=== PATIENT | male | born 1960 | race Caucasian/White ===

== ENCOUNTER 2020-01-09 10:03 | Outpatient (CLI) | payer MEDICARE, OTHER, SELFPAY ==
--- NOTE | 2020-01-09 10:16 | CT_ITS ---
WS: [id number] CT LUNG CANCER SCREENING DLP: 90.53 mGy.cm DIvol: 2.28 mGy CLINICAL INFORMATION SCREENING VISIT: Baseline COMPARISON: None available. FINDINGS Diagnostic quality: Satisfactory Comments: None. Lung Nodules: Benign granuloma LEFT lower lobe. Ovoid, 4 mm perifissural nodule on the LEFT, image 25 2 of series 3. Very superficial endobronchial lesions in the distal RIGHT trachea and the proximal RI GHT mainstem bronchus. The largest measures 4 mm. Largest endobronchial lesion on image 170 of series 3. The smaller lesion image 148 of series 3. Lungs: Mild biapical pleural thickening and fibrosis. Mild emphysema. Heart: Normal size. Other findings: Mild atherosclerosis of aorta. Pulmonary artery size is normal. There is mild diffuse thickening of the esophagus and a moderate size hiatal hernia. There is a small amount of fluid in t he distal esophagus. Bilateral nephrolithiasis upper poles. Prior cholecystectomy. CT/CT lung screening [id number] IMPRESSION: LUNG-RADS: 4A-Probably Suspicious FOLLOW UP: 3 Month LDCT 1. Follow up low-dose CT and 3 months recommended for the endobronchial lesion s. 2. Mild diffuse esophageal wall thickening and fluid in the distal esophagus. Consider reflux esophagitis and esophagitis as etiologies.
== END 2020-01-09 10:04 | disposition home or self-care (01) ==
LOC: RAD 10:08
PROVIDERS: Family Provider Internal Medicine; Visit Provider Internal Medicine
DX: Z12.2 Encounter for screening for malignant neoplasm of respiratory organs (principal); F17.210 Nicotine dependence, cigarettes, uncomplicated; R91.8 Other nonspecific abnormal finding of lung field; J43.9 Emphysema, unspecified; I70.0 Atherosclerosis of aorta; N20.0 Calculus of kidney
CPT/HCPCS: G0297

== ENCOUNTER 2022-12-22 07:42 | Outpatient (CLI) | payer MEDICARE, SELFPAY ==
--- NOTE | 2022-12-22 | MR_ITS ---
WS: [id number] MRI LUMBAR SPINE WITH AND WITHOUT CONTRAST HISTORY: FAILED BACK SYNDROME, progressive back pain. COMPARISON: None available. TECHNIQUE: Sagittal and axial multisequence imaging is submitted. Postcontrast imaging 19 mL MultiHan ce. Increase in lumbar lordosis with curvature and scoliosis. Posterior fusion hardware in the thoracolum bar region. Additional posterior fusion hardware at L3-4. Hardware appears confined to the paraspinal soft tissues and does not appear to extend into the pedicles. L2 retrolisthesis by 2 mm. L3 retrolisthesis by 2 mm. Variable density throughout the osseous structu res. There is very slight retropulsion of posterior superior endplate of L2. There is very mild conta ct on the ventral thecal sac. Disc spaces are all narrowed and desiccated. Conus terminates normally at L1-2 disc level. L1-L2: Osteophytic ridging with mild L2 retropulsion upon the ventral thecal sac. Posterior laminecto my defect. Mild foraminal narrowing. L2-L3: Diffuse osteophytic ridging with ligamentum flavum and marked facet arthritis. Posterior sarah ectomy defect with fusion. Severe central, bilateral subarticular recess and RIGHT foraminal stenosis . Mild LEFT foraminal stenosis. L3-L4: Severe central and bilateral subarticular recess and foraminal stenosis. Large posterior sarah ectomy defect with bone fusion. Marked LEFT ligamentum flavum hypertrophy. There is significant encro achment upon the L3 and L4 nerve roots. L4-L5: Diffuse osteophytic ridging and disc bulging with a central protrusion. Marked ligamentum flav um and facet arthritis. Laminectomy defect with fusion. Severe central, bilateral subarticular recess and moderate foraminal stenosis. There is significant encroachment with deformity upon the traversin g L5 nerve roots. L5-S1: Mild annular disc bulging with severe ligamentum flavum and facet arthritis. Moderate central, bilateral subarticular recess and foraminal stenosis, RIGHT greater than LEFT. No discitis or osteomyelitis. LEFT renal cyst. Heterogeneous marrow signal throughout the spine and pelvis. Probably due to osteopenia. MR/MR lumbar spine wo/w con [id number] IMPRESSION: 1. Advanced degenerative changes throughout the lumbar spine with multifocal a reas of stenosis. 2. Scoliosis and increased lumbar lordosis. 3. Severe central, bilateral subarticular recess and RIGHT foraminal stenosis at L2-3 with mild LEFT foraminal stenosis. 4. Severe central, bilateral subarticular recess and foraminal stenosis at L3- 4. Significant encroachment upon the L3 and L4 nerve roots. 5. Severe central, bilateral subarticular recess and moderate foraminal stenos is at L4-5 with significant encroachment and deformity upon the traversing L5 n erve roots. 6. Moderate central, bilateral subarticular recess and foraminal stenosis at L 5-S1, RIGHT greater than LEFT. 7. Posterior 3 mm retropulsion of the posterior superior endplate of L2 with c ontact on the ventral thecal sac.
--- NOTE | 2022-12-22 | MR_ITS ---
WS: [id number] MRI THORACIC SPINE with and without contrast. HISTORY: FAILED BACK SYNDROME COMPARISON: None available. TECHNIQUE: Multiplanar sequences are performed in sagittal and axial planes. Postcontrast imaging Mul tiHance 19 mL. Normal posterior thoracic alignment. Disc spaces are mildly narrowed and desiccated. Mild heterogeneo us marrow signal with no areas of abnormal enhancement within the bones. Signal within the cord is no rmal. No fractures or marrow edema. Posterior fusion hardware at T12-L1. T1-2: Bilateral facet arthritis. T2-3: Moderate bilateral facet joint arthritis encroaching upon the neural foramina. Small RIGHT par acentral disc protrusion. Moderate bilateral foraminal stenosis. T3-4: Moderate facet joint arthritis with moderate foraminal stenosis. T4-5: Mild facet arthritis and foraminal narrowing. T5-6: Mild facet arthritis and foraminal narrowing. T6-7: Bilateral paracentral disc protrusions. No contact on the thoracic cord. Mild facet arthritis and foraminal narrowing. T7-8: Small central disc protrusion with moderate facet arthritis. Moderate foraminal stenosis. T8-9: Moderate central disc protrusion with moderate facet joint arthritis. Moderate bilateral rosalina inal stenosis. T9-10: Bilateral paracentral disc protrusions with mild narrowing of the central canal. Moderate to severe bilateral facet joint arthritis. Moderate to severe foraminal stenosis. T10-11: Moderate to severe bilateral facet joint arthritis with moderate to severe bilateral foramin al stenosis. T11-12: Mild bilateral foraminal narrowing and facet arthritis. T12-L1: No stenosis. No discitis or osteomyelitis. MR/MR thoracic spine wo/w [id number] IMPRESSION: 1. Multilevel facet joint arthritis. Most significant at T2-3, T3-4 and from T 7-8 through T10-11. 2. Small RIGHT paracentral disc protrusion at T2-3 and T7-8. 3. Bilateral paracentral disc protrusions at T6-7 and T9-10. No cord contact. 4. Small central disc protrusion at T8-9. 5. No high-grade central stenosis.
[2022-12-22] MEDS: gadobenate dimeglumine 20 mL vial IV (09:08)
== END 2022-12-22 07:43 | disposition home or self-care (01) ==
LOC: RAD 07:46
PROVIDERS: PCP General Practice; Visit Provider General Practice
DX: M96.1 Postlaminectomy syndrome, not elsewhere classified (principal); M54.14 Radiculopathy, thoracic region; M54.17 Radiculopathy, lumbosacral region; M47.894 Other spondylosis, thoracic region; M51.24 Other intervertebral disc displacement, thoracic region; M40.56 Lordosis, unspecified, lumbar region; M41.9 Scoliosis, unspecified; M51.36 Other intervertebral disc degeneration, lumbar region
CPT/HCPCS: 72157; 72158; A9577

== ENCOUNTER → 2023-03-22 09:13 | Outpatient (BNVA) | payer MEDICARE, SELFPAY | PROVIDERS: PCP General Practice; Referring Provider Nurse Practitioner Family; Visit Provider Orthopaedic Surgery | DX: M54.9 Dorsalgia, unspecified (principal); Z98.890 Other specified postprocedural states | CPT/HCPCS: 72100; 99204 ==

== ENCOUNTER 2023-06-17 12:09 | Emergency (ER) | payer MEDICARE, SELFPAY ==
[2023-06-17 12:09] VITALS: BP 153/72; PULSE 65; RESP 18; TEMP 36.5; O2SAT 96; BMI 24.4
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
[2023-06-17 12:33] LABS: Basophils % 0.1 %; Hematocrit 41.5 % (37-53); Lymphocytes # 2.1 10^3/uL (0.8-4.8); Lymphocytes % 20.8 %; Mean Corpuscular HGB Conc 34.9 g/dL (30-55); Mean Corpuscular Hemoglobin 34.5 pg (27-33); Mean Corpuscular Volume 98.8 fl (82-101); Mean Platelet Volume 9.5 fL (7.4-10.4); Monocytes # 1.3 10^3/uL (0.2-0.9); Monocytes % 12.7 %; Neutrophils # 6.64 10^3/uL (1.8-7.7); Nucleated Red Blood Cells % 0 %; Platelet Count 159 10^3/cmm (157-399); Red Cell Distribution Width 14.3 % (12.1-15.1); White Blood Count 10.06 10^3/uL (3.29-11.43)
[2023-06-17 12:42] LABS: INR 0.99 (0.8-1.2)
[2023-06-17] MEDS: ceFAZolin 1,000 MG in sodium chloride 0.9% (plus) 50 ML 100 MG IV (12:42)
[2023-06-17 12:47] VITALS: BP 153/72; PULSE 69; RESP 16; O2SAT 98
--- NOTE | 2023-06-17 12:49 | PC.NURSE ---
[place] [employer] ARRIVED TO ER [id number].
[2023-06-17 12:54] LABS: Alanine Aminotransferase 55 U/L (0-41); Albumin Level 3.8 g/dL (3.5-5.2); Alkaline Phosphatase 98 U/L (40-130); Anion Gap 15.5 (5-19); Aspartate Amino Transferase 55 U/L (0-40); Blood Urea Nitrogen 28 mg/dL (8-23); Calcium 10.2 mg/dL (8.5-10.5); Carbon Dioxide 28 mmol/L (22-29); Chloride 103 mmol/L (98-107); Creatinine Clr Calc Pharmacy 78.0185; Globulin 4.2 g/dL (1.3-4.6); Glomerular Filtration Rate 67.8 mL/min (90-130); Glucose 99 mg/dL (65-115); Osmolality Calculated 300 mOsm/kg (285-295); Potassium 4.5 mmol/L (3.5-5.1); Sodium 142 mmol/L (136-145)
[2023-06-17 12:56] LABS: Alcohol Level < 10 mg/dL (0-10)
[2023-06-17 13:29] VITALS: O2SAT 97
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
--- NOTE | 2023-06-17 13:48 | PC.NURSE ---
this nurse called report to Jazmín Alonso at [facility] at 1303. this nurse called and updated Jazmín Alonso of [place] information & informed Jazmín that [employer] [facility] was leaving [facility].
--- NOTE | 2023-06-17 13:50 | PC.NURSE ---
this nurse gave report to Tejinder Zhang with [employer]. this nurse gave patients belongings to Tejinder Avendaño. pt belongings included: shirt, pants, belt, shoes, phone, wallet containing $280 in [place] (counted in front of pt by this nurse and Tejinder Lane, [facility]), cane, and glasses container.
[2023-06-17 14:34] VITALS: PULSE 67; RESP 16; O2SAT 97
== END 2023-06-17 14:35 | disposition short-term general hospital (02) ==
PROVIDERS: Emergency Provider Emergency Medicine; PCP General Practice
DX: S01.83XA Puncture wound without foreign body of other part of head, initial encounter (principal); Z72.0 Tobacco use
CPT/HCPCS: 70450; 80053; 80307; 85025; 85610; 96365; 99284; J0690

== ENCOUNTER 2023-09-16 12:00 | Inpatient (IN) | payer MEDICARE, SELFPAY ==
[2023-09-16 12:01] VITALS: BP 124/72; PULSE 74; RESP 15; TEMP 36.5; O2SAT 98
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
[2023-09-16 12:36] LABS: Amphetamines Screen Urine Negative (Negative); Barbiturates Screen Urine Negative (Negative); Benzodiazepines Screen Urine Positive (Negative); Cocaine Screen Urine Negative (Negative); Opiate Screen Urine Negative (Negative); PCP Screen Urine Negative (Negative); THC Screen Urine Negative (Negative)
[2023-09-16 12:39] LABS: Basophils % 0.7 %; Eosinophils # 0.1 10^3/uL (0.0-0.8); Eosinophils % 2.2 %; Hematocrit 38.1 % (37-53); Lymphocytes # 1.7 10^3/uL (0.8-4.8); Lymphocytes % 40.1 %; Mean Corpuscular HGB Conc 32.3 g/dL (30-55); Mean Corpuscular Hemoglobin 31.9 pg (27-33); Monocytes # 0.7 10^3/uL (0.2-0.9); Monocytes % 17.3 %; Neutrophils # 1.62 10^3/uL (1.8-7.7); Neutrophils % 39.5 %; Nucleated Red Blood Cells % 0 %; Platelet Count 106 10^3/cmm (157-399); Red Blood Count 3.85 10^6/uL (3.85-5.65); Red Cell Distribution Width 14.4 % (12.1-15.1); White Blood Count 4.11 10^3/uL (3.29-11.43)
[2023-09-16 12:58] LABS: Acetaminophen 9.7 ug/mL (10-30); Alanine Aminotransferase 34 U/L (0-41); Albumin Level 3.1 g/dL (3.5-5.2); Alkaline Phosphatase 189 U/L (40-130); Anion Gap 10.7 (5-19); Aspartate Amino Transferase 49 U/L (0-40); Blood Urea Nitrogen 15 mg/dL (8-23); Calcium 8.6 mg/dL (8.5-10.5); Carbon Dioxide 27 mmol/L (22-29); Chloride 108 mmol/L (98-107); Globulin 4.6 g/dL (1.3-4.6); Glomerular Filtration Rate 75.7 mL/min (90-130); Glucose 105 mg/dL (65-115); Osmolality Calculated 295 mOsm/kg (285-295); Potassium 3.7 mmol/L (3.5-5.1); Sodium 142 mmol/L (136-145); Total Bilirubin 0.3 mg/dL (0.15-1.2); Total Protein 7.7 g/dL (6.6-8.7)
[2023-09-16 12:59] LABS: Alcohol Level < 10 mg/dL (0-10); Salicylate < 0.3 mg/dL (3-10)
--- NOTE | 2023-09-16 13:19 | PC.NURSE ---
96 hour holds right read and reviewed with patient. Patient verbalized understandings. Copy of rights given to patient.
[2023-09-16 13:35] VITALS: BP 136/77; PULSE 70; RESP 16; O2SAT 97
[2023-09-16 13:45] VITALS: BP 137/72; PULSE 71; RESP 14; TEMP 36.6; O2SAT 99
[2023-09-16 14:00] VITALS: BP 132/72; PULSE 71; RESP 14; TEMP 36.6; O2SAT 99
[2023-09-16 17:02] VITALS: RESP 18
[2023-09-16] MEDS: divalproex DR 500 mg Tablet PO (17:02)
[2023-09-16] MEDS: oxyCODONE 5 mg IR Tab/Cap 10 MG PO (17:02)
[2023-09-16] MEDS: nicotine 2 mg Gum BUCCAL (20:23)
[2023-09-16] MEDS: hyDROXYzine 25 mg Capsule 50 MG PO (20:23)
[2023-09-16] MEDS: trazodone 50 mg Tablet PO (20:23)
[2023-09-16 20:43] VITALS: BP 119/68; PULSE 83; RESP 18; TEMP 36.3; O2SAT 96
[2023-09-17 04:11] VITALS: RESP 18; O2SAT 95
[2023-09-17] MEDS: oxyCODONE 5 mg IR Tab/Cap 10 MG PO (04:11)
[2023-09-17 06:00] VITALS: BP 107/64; PULSE 63; RESP 18; TEMP 36.8; O2SAT 98
--- NOTE | 2023-09-17 06:24 | PC.NURSE ---
PT WAS GIVEN VISTARIL 50 MG FOR REPORTED ANXIETY AND TRAZODONE 50 MG FOR INSOMNIA. MEDICATIONS DEEMED EFFECTIVE PT WAS ABLE TO REST AND SLEPT APPROXIMATELY 7 HOURS THIS SHIFT UNTIL WAKING UP IN PAIN AND REQUIRED OXYCODONE IR 10 MG. PT CONTINUES TO STAY AWAKE AND IS IN DAY ROOM. NO DISTRESS NOTED AND IS WATCHING TV.
[2023-09-17] MEDS: nicotine 21 mg Patch 1 PATCH TRANSDERMA (08:14)
[2023-09-17] MEDS: divalproex DR 500 mg Tablet PO ×2 (08:14→18:34)
[2023-09-17] MEDS: acetaminophen 325 mg Tablet 650 MG PO (13:01)
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
[2023-09-17 14:00] VITALS: BP 104/62; PULSE 65; RESP 18; TEMP 36.8; O2SAT 96
[2023-09-17] MEDS: trazodone 50 mg Tablet PO (19:47)
[2023-09-17 20:26] VITALS: BP 99/67; PULSE 65; RESP 18; TEMP 36.3; O2SAT 98
[2023-09-18 05:21] VITALS: RESP 18; O2SAT 98
[2023-09-18] MEDS: oxyCODONE 5 mg IR Tab/Cap 10 MG PO (05:21)
[2023-09-18 06:00] VITALS: BP 106/67; PULSE 66; RESP 16; TEMP 36.6; O2SAT 97
[2023-09-18] MEDS: buPROPion XL (24 HR) 150 mg Tablet PO (07:52)
[2023-09-18] MEDS: nicotine 21 mg Patch 1 PATCH TRANSDERMA (07:52)
[2023-09-18] MEDS: divalproex DR 500 mg Tablet PO ×2 (07:52→18:20)
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
[2023-09-18 14:00] VITALS: BP 108/69; PULSE 63; RESP 20; TEMP 36.6; O2SAT 97
[2023-09-18 20:32] VITALS: RESP 18; TEMP 36.3
[2023-09-19 03:02] VITALS: RESP 18
[2023-09-19] MEDS: oxyCODONE 5 mg IR Tab/Cap 10 MG PO (03:02)
[2023-09-19 06:00] VITALS: BP 113/66; PULSE 63; RESP 18; TEMP 36.5; O2SAT 98
[2023-09-19] MEDS: buPROPion XL (24 HR) 150 mg Tablet PO (08:13)
[2023-09-19] MEDS: divalproex DR 500 mg Tablet PO ×2 (08:13→18:29)
[2023-09-19 14:00] VITALS: BP 103/62; PULSE 64; RESP 16; O2SAT 96
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
[2023-09-19 20:15] VITALS: RESP 18
--- NOTE | 2023-09-19 20:15 | PC.NURSE ---
Attempted to obtain vitals from patient and patient was being non-compliant
--- NOTE | 2023-09-19 21:44 | PC.NURSE ---
PT APPEARS TO HAVE A FLAT AFFECT AND DEPRESSED MOOD. DIFFICULTY FINDING WORDS AND DELAYED IN ANSWERING QUESTIONS. DENIES SI/HI AND AVH AT THIS TIME. RATES ANXIETY 3/10 AND DEPRESSION 4/10. PT RATES PAIN 6/10 AND GENERALIZED. PT REQUESTS PAIN PILL. RN ASSURED PT THAT I WOULD GET IT FOR HIM. RN INFORMED PT SEVERAL TIMES HIS MEDICATIONS WERE READY. PT ALSO REQUESTED TRAZODONE FOR SLEEP AND VISTARIL FOR ANXIETY, ALL WHICH THIS RN HAD PULLED TO GIVE. AT 2141 PT CONTINUES TO DECLINE WALKING TO THE NURSES STATION TO GET HIS MEDICATIONS. IF PT DOES NOT GET MEDICATIONS BY 2200 MEDICATIONS WILL BE PLACED BACK IN [place]. PT IS OBSERVED WITHDRAWN AND ISOLATES TO ROOM. APPEARED TO BE SAD AND QUIET DURING ASSESSMENT. ALL QUESTIONS WERE ANSWERED AND SUPPORT WAS VOICED.
--- NOTE | 2023-09-19 23:00 | PC.NURSE ---
96 HOUR HOLD ORDER DISCONTINUED, PTS GUARDIAN BROUGHT IN PTS GUARDIANSHIP PAPERWORK TO BE SCANNED TO CHART AND FILED INTO PAPER CHART.
[2023-09-20 06:00] VITALS: BP 111/69; PULSE 60; RESP 16; TEMP 35.8; O2SAT 98
--- NOTE | 2023-09-20 06:33 | PC.NURSE ---
DURING ASSESSMENT PT REQUESTED OXYCODONE 10 MG, VISTARIL FOR ANXIETY AND TRAZODONE FOR SLEEP. PT NEVER CAME TO THE NURSES STATION TO TAKE MEDICATIONS AFTER ENCOURAGEMENT FROM MULTIPLE STAFF MEMBERS. PT SLEPT APPROXIMATELY 4 HOURS THIS SHIFT AND HAS BEEN AWAKE WATCHING TV SINCE 0330 AM. PT WAS OFFERED PRN MEDIATIONS MULTIPLE TIMES BUT PT CONTINUED TO DECLINE. SUPPORT VOICED.
[2023-09-20] MEDS: buPROPion XL (24 HR) 150 mg Tablet PO (10:42)
[2023-09-20] MEDS: divalproex DR 500 mg Tablet PO (10:42)
--- NOTE | 2023-09-20 11:06 | PC.NURSE ---
Patient's guardian called in regards to pain medication from Dr. Callahan in [facility], [phone]. This nurse talked to Penny from Dr. Callahan s office. Dr. Callahan hasn't seen patient since May 2023 when he was prescribed a 30 day supply of morphine.
[2023-09-20 14:00] VITALS: RESP 18
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
[2023-09-20] MEDS: divalproex DR 500 mg Tablet 250 MG PO (18:35)
[2023-09-20 18:38] VITALS: RESP 16
[2023-09-20] MEDS: oxyCODONE 5 mg IR Tab/Cap 10 MG PO (18:38)
[2023-09-20] MEDS: nicotine 2 mg Gum BUCCAL (19:46)
[2023-09-20 20:11] VITALS: BP 95/60; PULSE 69; RESP 17; O2SAT 100
[2023-09-21 06:00] VITALS: BP 94/60; PULSE 64; RESP 16; TEMP 36.6; O2SAT 93
[2023-09-21] MEDS: buPROPion XL (24 HR) 150 mg Tablet 300 MG PO (08:39)
[2023-09-21] MEDS: divalproex DR 500 mg Tablet 250 MG PO ×2 (08:41→18:44)
[2023-09-21 14:00] VITALS: BP 111/68; PULSE 62; RESP 18; TEMP 36.6; O2SAT 99
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
[2023-09-21 21:24] VITALS: RESP 15
--- NOTE | 2023-09-21 21:24 | PC.NURSE ---
Attempted to obtain vitals from patient. Patient declined. RR documented.
[2023-09-22 06:00] VITALS: BP 149/75; PULSE 67; RESP 18; TEMP 36.9; O2SAT 99
[2023-09-22 06:39] VITALS: RESP 18
[2023-09-22] MEDS: oxyCODONE 5 mg IR Tab/Cap 10 MG PO (06:39)
--- NOTE | 2023-09-22 07:54 | PC.NURSE ---
During morning assessment, patient was flicking a rubber band on his fingers. Patient stated that this is helping him get his mind off things. Patient denies SI, HI, AVH, and depression. Patient states that he wants to go home because he has things to do, such as feed animals and take his granddaughter to [employer].
[2023-09-22] MEDS: divalproex DR 500 mg Tablet 250 MG PO ×2 (08:48→18:02)
[2023-09-22] MEDS: buPROPion XL (24 HR) 150 mg Tablet 300 MG PO (08:48)
[2023-09-22] MEDS: acetaminophen 325 mg Tablet 650 MG PO (08:50)
[2023-09-22 14:00] VITALS: BP 116/71; PULSE 81; RESP 16; TEMP 36.6; O2SAT 97
[2023-09-22] MEDS: nicotine 2 mg Gum BUCCAL (16:02)
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
[2023-09-22] MEDS: trazodone 50 mg Tablet PO (21:08)
[2023-09-22] MEDS: OLANZapine 5 mg ODT PO (21:08)
[2023-09-22 21:17] VITALS: RESP 16
--- NOTE | 2023-09-22 23:07 | PC.NURSE ---
PT IS OBSERVED TO HAVE A FLAT AFFECT, DEPRESSED MOOD AND BOUGHTS OF CONFUSION. PT WILL ASK FOR SOMETHING, THEN FORGET WHAT HE ASKED FOR OR FORGET TO COME BACK AND GET IT. PT DENIES PAIN. DENIES SI/HI AND AVH AT THIS TIME. RATES ANXIETY AND DEPRESSION 02/07. PT REQUESTED MEDICATIONS FOR SLEEP AND ANXIETY. WHEN RN WAS ASKING WHAT HE HAD BEEN TAKING IT WAS APPARENT PT HAS BEEN HAVING VISUAL HALLUCINATIONS, STATING I NEED THE MEDICATIONS THAT KEEP THE SPIDERS OUT OF MY HEAD. PT WAS GIVEN TRAZODONE 50 MG ORDERED FOR INSOMNIA AND ZYDIS 5 MG FOR INCREASED ANXIETY AND AGGITATION. AFTER TAKING MEDICATIONS PT CAME UP TO THE NURSES STATION AND ASKED WHEN ARE YOU COMING WITH THE BROOM AND THE MOP? RN ASKED IF HE SPILLED HIS DRINK, BUT PT REPLIED I NEED YOU TO SWEEP UP THE SPIDERS SO THEY STOP COMING UP OUT OF MY BED. STAFF WENT DOWN TO ROOM AND ASSURED PT THERE WERE NO SPIDERS BUT WE WOULD BE CHECKING EVERY 15 MINUTES AND IF WE SEE ANYTHIN WE WILL DEFINATELY GET THEM SWEPT UP. PT WAS ABLE TO LAY DOWN AND REST AFTER THAT. ALL QUESTIONS WERE ANSWERED AND SUPPORT WAS VOICED.
[2023-09-23 06:00] VITALS: RESP 16
--- NOTE | 2023-09-23 06:35 | PC.NURSE ---
Due to patients manic behavior, Did not obtain vitals. RR documented. CN notified.
--- NOTE | 2023-09-23 06:40 | PC.NURSE ---
PT DID RECEIVE PRN MEDICATIONS THIS SHIFT. PT WAS GIVEN TRAZODONE FOR INSOMNIA AND ZYDIS FOR INCREASED ANXIETY AND MILD AGITATION. PT SLEPT APPROXIMATELY 5 HOURS BEFORE WAKING UP. WHEN PT WOKE UP STAFF OBSERVED PT WALKING INTO OTHER PT ROOMS AND WAS REDIRECTED MULTIPLE TIMES AND REDIRECTED TO HIS ROOM. PT WAS THEN OBSERVED SITTING ON THE BED STARRING AT THE FLOOR LOOKING FOR SPIDERS. PT WENT TO THE BATHROOM AND THEN LAID BACK DOWN AND WAS ABLE TO GO BACK TO SLEEP. PT SLEPT ANOTHER 3-4 HOURS. MEDICATIONS ARE DEEMED EFFECTIVE. PT HAS HAD NO OTHER REPORTS OF ANXIETY AND WAS ABLE TO SLEEP 8-9 HOURS. PT CONTINUES TO SLEEP AND IS RESTING WITH NO SIGNS OF DISTRESS.
[2023-09-23] MEDS: divalproex DR 500 mg Tablet 250 MG PO ×2 (08:58→17:32)
[2023-09-23] MEDS: buPROPion XL (24 HR) 150 mg Tablet 300 MG PO (08:58)
[2023-09-23 14:00] VITALS: BP 103/63; PULSE 68; RESP 16; TEMP 36.4; O2SAT 98
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
[2023-09-23] MEDS: acetaminophen 325 mg Tablet 650 MG PO (18:51)
--- NOTE | 2023-09-23 20:31 | PC.NURSE ---
PT REQUESTED MEDICATIONS FOR ANXIETY AND SLEEP. RN PULLED MEDICATIONS AND ATTEMPTED TO GIVE TO PT THEN PT REFUSED AND DECLINED TO TAKE THE MEDICATIONS HE REQUESTED. WASTED IN DESTROYER AND IN PIXIS. .
[2023-09-23 20:43] VITALS: BP 106/67; PULSE 67; RESP 18; O2SAT 96
[2023-09-24] MEDS: ibuprofen 600 mg Tablet PO (03:11)
--- NOTE | 2023-09-24 04:53 | PC.NURSE ---
PT DID REQUEST MEDICATIONS EARLY IN THE SHIFT FOR SLEEP AND INCREASED ANXIETY. WHEN RN WENT TO GIVE MEDIATIONS PT REFUSED. PT WAS OBSERVED GETTING UP AND DOWN IN ROOM SEVERAL TIMES AND THEN CAME TO THE NURSES STATION AT 0300 AM. PT STATED HE NEEDED COFFEE AND THE TIME. PT WAS INFORMED THERE IS NO COFFEE UNTIL 600 AM, PT WAS OBSERVED TO HAVE CONFUSION AND CAME BACK TO THE NURSES STATION SHORTLY ASKING THE SAME QUESTIONS. PT HAS BEEN IN DAY ROOM WATCHING TV SINCE 300 AM. SLEPT APPROXIMATELY 3-4 HOURS THIS SHIFT. SUPPORT AND REDIRECTION PROVIDED.
[2023-09-24 06:00] VITALS: BP 101/63; PULSE 71; RESP 18; TEMP 36.3; O2SAT 97
[2023-09-24] MEDS: buPROPion XL (24 HR) 150 mg Tablet 300 MG PO (08:02)
[2023-09-24] MEDS: divalproex DR 500 mg Tablet 250 MG PO ×2 (08:04→18:12)
[2023-09-24] MEDS: acetaminophen 325 mg Tablet 650 MG PO (11:53)
[2023-09-24] MEDS: nicotine 2 mg Gum BUCCAL (13:18)
[2023-09-24 14:00] VITALS: BP 130/70; PULSE 64; RESP 16; TEMP 36.3; O2SAT 100
--- NOTE | 2023-09-24 16:16 | PC.NURSE ---
Patient attempted to move a chair in the dayroom to the courtyard. Patient was asked why he was attempting to move it outside and he replied that he wanted to dump some of the sand out. He was redirectable. Patient's sister then visited and he became frustrated with her because she did not have a man named Juan J 's number. He continues to appear confused, but is now reading calmly in the dayroom.
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
[2023-09-24 20:05] VITALS: RESP 16; O2SAT 98
[2023-09-24] MEDS: haloperidol 5 mg Tablet PO (20:05)
[2023-09-24] MEDS: oxyCODONE 5 mg IR Tab/Cap 10 MG PO (20:05)
[2023-09-24] MEDS: trazodone 50 mg Tablet PO (20:05)
[2023-09-24 20:11] VITALS: BP 120/73; PULSE 98; RESP 15; TEMP 36.4; O2SAT 98
--- NOTE | 2023-09-24 22:13 | PC.NURSE ---
PT OBSERVED LOOKING FOR SNAKES IN MY ROOM. STAFF ASSURED PT IF THERE ARE ANY SNAKES THAT STAFF WILL TAKE CARE OF IT. PT DENIES SI/HI AND AVH AT THIS TIME BUT PT IS OBSERVED HAVING OBVIOUS HALLUCINATIONS. PT REPORTS PAIN 8/10 AND OXYCODONE 10 MG WAS GIVEN ORDERED. PT WAS ALSO GIVEN HALDOL 5 MG FOR HALLUCINATIONS AND ANXIETY. TRAZODONE 50 MG TO ASSIST WITH SLEEP. PT CONTINUES TO HAVE CONFUSION BUT IS EASILY REDIRECTED BY STAFF VERBALLY. PT GIVEN SNACK AND DRINK. PT CONTINUES TO STAY UP AND WATCH TV. ALL QUESTIONS ANSWERED AND SUPPORT VOICED.
--- NOTE | 2023-09-25 04:11 | PC.NURSE ---
WEEKLY WEIGHT OBTAINED, WEIGHT HAS DECREASED 3 POUNDS, NEW ORDERS RECEIVED TO GIVE ENSURE SHAKES WITH EACH MEAL. PT STATES HE PREFERS CHOCOLATE. PT EDUCATED ON DIET AND SUPPLEMENTATION, VERBALIZED UNDERSTANDING AND THANKED RN. SUPPORT VOICED.
[2023-09-25 06:00] VITALS: BP 121/72; PULSE 63; RESP 17; TEMP 36.4; O2SAT 99
[2023-09-25] MEDS: divalproex DR 500 mg Tablet 250 MG PO ×2 (09:03→17:22)
[2023-09-25] MEDS: buPROPion XL (24 HR) 150 mg Tablet 300 MG PO (09:03)
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
[2023-09-25 14:00] VITALS: BP 103/65; PULSE 69; RESP 17; TEMP 36.5; O2SAT 98
[2023-09-25] MEDS: nicotine 2 mg Gum BUCCAL (14:19)
[2023-09-25] MEDS: acetaminophen 325 mg Tablet 650 MG PO (14:53)
[2023-09-25 18:00] VITALS: RESP 18
[2023-09-25] MEDS: oxyCODONE 5 mg IR Tab/Cap 10 MG PO (18:00)
[2023-09-25 19:05] VITALS: BP 120/67; PULSE 75; RESP 18; TEMP 36.7; O2SAT 96
[2023-09-25 19:40] VITALS: BP 109/68; PULSE 81; RESP 18; TEMP 36.7; O2SAT 96
[2023-09-25] MEDS: trazodone 50 mg Tablet PO (20:24)
[2023-09-25] MEDS: haloperidol 5 mg Tablet PO (20:24)
--- NOTE | 2023-09-25 22:02 | PC.NURSE ---
PT DENIES PAIN. DENIES SI/HI AND AVH AT THIS TIME. RATES ANXIETY 03/10, HALDOL 5MG WAS GIVEN ORDERED FOR INCREASED ANXIETY AND REPORTS OF STATING HE IS SEEING SPIDERS AND SNAKES. TRAZODONE 50 MG WAS GIVEN ORDERED FOR SLEEP. PT REPORTED A FALL ON THE PREVIOUS SHIFT AND HURT HIS BACK, THERE IS A BASEBALL SIZE BRUISE TO HIS MIDDLE BACK ON THE RIGHT SIDE. PT IS OBSERVED TO HAVE CONFUSION BUT IS EASILY REDIRECTED. ALL QUESTIONS ANSWERED AND SUPPORT VOICED
--- NOTE | 2023-09-25 22:39 | PC.NURSE ---
AT SHIFT CHANGE PT INFORMED DAY SHIFT FULFILLMENT MAIL CLERK THAT HE HAD FALLEN IN HIS ROOM AND THEN SHOWED FULFILLMENT MAIL CLERK A BRUISE ON HIS BACK. FULFILLMENT MAIL CLERK NOTIFIED SENIOR ELECTRICAL DESIGNER AND THIS RN WHILE IN REPORT([id number]). FALL WAS REPORTED TO DR. VILLEGAS NO NEW ORDERS WERE RECEIVED. THIS RN WENT TO ASSESS PT AND FULFILLMENT MAIL CLERK TO COMPLETE VITALS. PTS HEAD WAS PALPATED AND INSPECTED THOROUGHLY FOR ANY EVIDENCE OF INJURY, NONE WAS IDENTIFIED. DR. VILLEGAS NOTIFIED OF NEGATIVE FINDINGS. PT STATES HE WENT INTO HIS ROOM AT APPROXIMATELY 1805, THE ROOM WAS DARK AND THERE WAS A SHEET ON THE FLOOR. PT STATES HE WENT TO SIT DOWN ON THE BED AND MISSED THE BED CAUSING PT GO TO THE FLOOR WITH BACK SLIDING DOWN THE WOODEN BED CAUSING A BRUISE. THE BRUISE IS NOTED TO BE ON THE RIGHT SIDE OF PTS MID BACK AND BASEBALL SIZE WITH SMALL RED SCRAPE NOTED TO THE CENTER OF BRUISE. PT HAS BEEN CONFUSED AND IT WAS REPORTED THAT PT HAD BEEN HALLUCINATING AND SEEING SNAKES AND SPIDERS THROUGH OUT THE SHIFT. PT WAS INSTRUCTED TO TURN THE LIGHT ON BEFORE GOING INTO ROOM SO HE CAN SEE, PTS ROOM MATE STATED HE WOULD ALSO HELP PT WITH THIS. STAFF WAS ALSO EDUCATED TO PROVIDE ASSISTANCE NEEDED. PT DID RECEIVE OXYCODONE IR 10 MG AT 1800, 5 MINUTES PRIOR TO FALL. NO OTHER INJURIES WERE IDENTIFIED AFTER ASSESSMENT WAS COMPLETE. VITAL SIGNS FOLLOWS: AT 1905 BP 120/67, HR 75, RR 18, TEMP 98.1 AND SPO2 96% ON RA. AT 1940 VITALS FOLLOWS: 109/68, HR 81, RR 18, TEMP 98.1 AND SPO2 96% ON RA. RN PLACED FALL MAT TO SIDE OF BED, PICKED UP SHEET, NO OTHER ENVIRONMENTAL ISSUES WERE IDENTIFIED. PTS NEURO EXAM WNL FOR PT. PT DENIES PAIN. ALL QUESTIONS WERE ANSWERED AND SUPPORT WAS VOICED. PT CURRENTLY RESTING IN BED WITH EYES CLOSED, NO DISTRESS OR DISCOMFORT WAS OBSERVED. LABORER WHARF WAS NOTIFIED [id number].
[2023-09-26 05:16] VITALS: RESP 16; O2SAT 96
[2023-09-26] MEDS: oxyCODONE 5 mg IR Tab/Cap 10 MG PO (05:16)
[2023-09-26 06:00] VITALS: BP 116/73; PULSE 64; RESP 18; TEMP 36.6; O2SAT 97
[2023-09-26] MEDS: nicotine 2 mg Gum BUCCAL ×3 (06:41→18:15)
--- NOTE | 2023-09-26 06:42 | PC.NURSE ---
PT RECEIVED PRN MEDICATIONS FOR ANXIETY AND SLEEP. PT RECEIVED TRAZODONE AND HALDOL, MEDICATIONS DEEMED EFFECTIVE. PT HAS NO FURTHER COMPLAINTS OF ANXIETY AND WAS ABLE TO REST. PT SLEPT APPROXIMATELY 7-8 HOURS THIS SHIFT. PT DID RECEIVED PRN OXYCODONE 10 MG FOR BACK PAIN DUE TO REPORTED FALL ON DAY SHIFT YESTERDAY. PT STATES THE PILL HELPED BUT I DON'T REMEMBER FALLING, I THOUGHT THE WEATHER WAS CHANGING. PT WAS REMINDED OF WHAT WAS REPORTED AND PT STATED OH I THINK I DID FALL, I REMEMBER NOW..
[2023-09-26] MEDS: divalproex DR 500 mg Tablet 250 MG PO (08:16)
[2023-09-26] MEDS: buPROPion XL (24 HR) 150 mg Tablet 300 MG PO (08:16)
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
[2023-09-26 14:00] VITALS: BP 101/62; PULSE 63; RESP 16; TEMP 36.4; O2SAT 99
--- NOTE | 2023-09-26 16:08 | PC.NURSE ---
This nurse was notified by a visitor that this patient had ripped off a piece of siding in the dayroom and she was concerned for the safety of her son. This nurse and ACTIVITIES SPECIALIST went to investigate. We discovered patient trying to open the back door with a piece of siding taken from the side of the sink in the dayroom. Patient refused to give staff the piece at first. Patient stated that he was ready to leave, that he needed to get out of here. Patient was redirected by staff by offering the opportunity to go outside onto the patio to get fresh air. Patient agreed to return the piece of siding. Patient confused and wild-eyed in appearance.
--- NOTE | 2023-09-26 18:23 | PC.NURSE ---
patient ambulating in hallway by nursing station. Shalom Nascimento CNA was pushing the dinner cart in the hallway behind patient, observed patient stooping over while walking & carrying a blanket. patient fell forward onto the floor, hit knees first then fell down onto elbows, did not hit head. staff assisted patient to bench by nurses station. vital signs obtained bp 127/74, heart rate 71, temp 98.2 oxygen level 99% on room air. no new abrasions, bruising, no new c/o pain. patient moved to bed closer to nurses station, yellow bracelet applied to arm, non skid socks provided. coin machine supervisor, NPU manager convention, and Dr. Carrillo notified. new order obtained for PT consult, order put in by nursing staff. Will cont to monitor closely
[2023-09-26 20:05] VITALS: RESP 16
[2023-09-26] MEDS: divalproex DR 250 mg Tablet PO (20:29)
[2023-09-27 06:00] VITALS: BP 119/70; PULSE 94; RESP 16; O2SAT 93
[2023-09-27] MEDS: buPROPion XL (24 HR) 150 mg Tablet 300 MG PO (07:39)
[2023-09-27] MEDS: divalproex DR 250 mg Tablet PO ×2 (07:39→19:44)
--- NOTE | 2023-09-27 08:50 | PC.NURSE ---
Patient came up to the window and asked what happened to the baby that was here last night? This nurse told patient that we don't have any babies on the unit, that we don't have anybody younger than 18 on the unit. Patient stated that he heard a baby crying last night. Patient appeared confused. Patient then asked when breakfast when arrive. This nurse informed patient that he already had his breakfast this morning. Patient said, hmm. Then patient said that he might come back later for some food.
--- NOTE | 2023-09-27 09:00 | PC.NURSE ---
PT informed this nurse that the fall mat in patient's room is a fall risk for patient. PT recommended that staff remove mat. Mat removed per recommendation.
[2023-09-27 10:41] VITALS: RESP 15
[2023-09-27] MEDS: oxyCODONE 5 mg IR Tab/Cap 10 MG PO (10:41)
[2023-09-27] MEDS: nicotine 2 mg Gum BUCCAL ×2 (12:27→15:16)
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
[2023-09-27 14:00] VITALS: BP 90/54; PULSE 112; RESP 18; TEMP 36.2; O2SAT 97
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
--- NOTE | 2023-09-27 18:06 | PC.NURSE ---
This nurse was contacted by koki at CT about the possibility that the order of CT of head wwo contrast might be inaccurate for subarachnoid hemorrhage. Called Dr. Jefferson office and left message for DC'd CT for now until more information is gathered. Dr. Carrillo is aware of the situation.
[2023-09-27] MEDS: ibuprofen 600 mg Tablet PO (18:16)
[2023-09-27 20:42] VITALS: BP 102/50; PULSE 65; RESP 17; TEMP 36.8; O2SAT 95
[2023-09-28 06:00] VITALS: BP 106/69; PULSE 65; RESP 17; O2SAT 98
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
[2023-09-28] MEDS: nicotine 21 mg Patch 1 PATCH TRANSDERMA (07:19)
[2023-09-28] MEDS: acetaminophen 325 mg Tablet 650 MG PO (07:19)
[2023-09-28] MEDS: divalproex DR 250 mg Tablet PO ×2 (08:51→19:51)
[2023-09-28] MEDS: buPROPion XL (24 HR) 150 mg Tablet 300 MG PO (08:51)
[2023-09-28] MEDS: nicotine 2 mg Gum BUCCAL (10:39)
[2023-09-28 12:58] VITALS: BP 115/66; PULSE 75; RESP 16; O2SAT 97
[2023-09-28] MEDS: bismuth subsalicylate 240 mL Btl 15 ML PO (14:29)
[2023-09-28] MEDS: OLANZapine 5 mg ODT PO (19:51)
[2023-09-28] MEDS: trazodone 50 mg Tablet PO (19:51)
[2023-09-28 20:49] VITALS: BP 133/71; PULSE 69; RESP 17; TEMP 36.7; O2SAT 97
--- NOTE | 2023-09-28 21:08 | PC.NURSE ---
IN BED RESTING AROUSES TO VOICE. PT DENIES SI/HI AND AVH AT THIS TIME. PT HAS NOT BEEN OBSERVED HAVING ANY HALLUCINATIONS THIS EVENING. PT RATES DEPRESSION AND ANXIETY 10/. PT WAS GIVEN ZYDIS 5 MG ORDERED FOR ANXIETY AND TRAZODONE 50 MG FOR SLEEP. ALL QUESTIONS ANSWERED AND SUPPORT VOICED. DENIES PAIN. PT TOOK MEDICATIONS WITHOUT ISSUE.
--- NOTE | 2023-09-29 06:26 | PC.NURSE ---
PT RECEIVED PRN MEDICATIONS EARLY IN THE SHIFT. TRAZODONE AND ZYDIS IS DEEMED EFFECTIVE. PT HAS HAD NO OTHER COMPLAINTS OF ANXIETY AND HAS SLEPT APPROXIMATELY 8-9 HOURS THIS SHIFT. PT CONTINUES TO REST WITH EYES CLOSED WITH NO DISTRESS NOTED.
--- NOTE | 2023-09-29 06:27 | PC.NURSE ---
Attempted to obtain patients vitals. Patient yelled Not right now . CN notified.
[2023-09-29] MEDS: acetaminophen 325 mg Tablet 650 MG PO ×2 (07:35→20:25)
[2023-09-29] MEDS: buPROPion XL (24 HR) 150 mg Tablet 300 MG PO (09:24)
[2023-09-29] MEDS: divalproex DR 250 mg Tablet PO ×2 (09:24→20:26)
[2023-09-29 14:00] VITALS: BP 107/67; PULSE 68; RESP 16; TEMP 36.7; O2SAT 99
[2023-09-29] MEDS: nicotine 2 mg Gum BUCCAL (14:45)
[2023-09-29 15:40] VITALS: RESP 17
[2023-09-29] MEDS: oxyCODONE 5 mg IR Tab/Cap 10 MG PO (15:40)
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
[2023-09-29 20:24] VITALS: BP 130/79; PULSE 78; RESP 18; O2SAT 96
[2023-09-29] MEDS: haloperidol 5 mg Tablet PO (20:25)
[2023-09-29] MEDS: trazodone 50 mg Tablet PO (20:25)
--- NOTE | 2023-09-30 05:26 | PC.NURSE ---
PT RECEIVED PRN MEDICATIONS THIS SHIFT FOR INCREASED ANXIETY AND INSOMNIA. PT RECEIVED TRAZODONE AND HALDOL ORDERED FOR SLEEP AND ANXIETY. MEDICATIONS DEEMED EFFECTIVE PT WAS ABLE TO REST AND HAS SLEPT APPROXIMATELY 8-9 HOURS THIS SHIFT. PT CONTINUES TO REST WITH EYES CLOSED WITH NO DISTRESS NOTED.
[2023-09-30 06:00] VITALS: RESP 17
--- NOTE | 2023-09-30 06:49 | PC.NURSE ---
pt refused vs [id number]
[2023-09-30] MEDS: divalproex DR 250 mg Tablet PO (07:43)
[2023-09-30] MEDS: buPROPion XL (24 HR) 150 mg Tablet 300 MG PO (07:43)
[2023-09-30 07:53] VITALS: RESP 16
[2023-09-30] MEDS: oxyCODONE 5 mg IR Tab/Cap 10 MG PO ×2 (07:53→18:09)
--- NOTE | 2023-09-30 08:07 | PC.NURSE ---
During morning shift assessment, patient states that he is not good because of back pain rated 7/10. Patient denies SI, HI, AVH, depression, and anxiety. This nurse recommended a hot shower for pain relief. Patient states that he will take a shower when he gets home, that the water is too cold.
[2023-09-30] MEDS: nicotine 2 mg Gum BUCCAL ×2 (09:52→20:25)
[2023-09-30] MEDS: acetaminophen 325 mg Tablet 650 MG PO ×2 (12:09→20:25)
[2023-09-30 14:00] VITALS: BP 112/68; PULSE 65; RESP 16; TEMP 36.4; O2SAT 98
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
[2023-09-30 18:09] VITALS: RESP 16
[2023-09-30] MEDS: haloperidol 5 mg Tablet PO (20:25)
[2023-09-30] MEDS: trazodone 50 mg Tablet PO (20:26)
[2023-09-30 20:41] VITALS: BP 126/69; PULSE 90; RESP 18; TEMP 37.2; O2SAT 98
--- NOTE | 2023-09-30 21:24 | PC.NURSE ---
IN DAY ROOM WATCHING TV. PT STATES HE IS STILL HAVING PAIN IN BACK 11/08, TYLENOL 650MG WAS GIVEN ORDERED FOR PAIN. PT DENIES SI/HI AND AVH AT THIS TIME. RATES ANXIETY 03/10 AND DEPRESSION 01/08. PT WAS GIVEN TRAZODONE 50 MG ORDERED FOR SLEEP. PT WAS GIVEN HALDOL 5 MG FOR INCREASED ANXIETY. WHEN PT TOOK NIGHT TIME MEDICATIONS HE SHOWED RN THE MEDICATIONS ON HIS TONGUE AND WAS OBSERVED HIDING HIS DEPAKOTE 250 MG IN HIS LEFT HAND. RN INFORMED PT THAT HE NEEDED TO TAKE THE MEDICATION IN HIS HAND, PT STATED ITS THE ONE THAT KNOCKS ME OUT. PT WAS EDUCATED HE ALREADY TOOK THE SLEEP MEDICATION AND ANTI ANXIETY MEDICATIONS AND THOSE ARE THE MEDICATIONS THAT MAKE PT TIRE. PT STATED OH WELL I GUESS I DIDN'T WANT MEDICINE TO HELP ME SLEEP. PT WAS ENCOURAGED TO TAKE HIS DEPAKOTE BUT DECLINES TO TAKE IT. PT WAS GIVEN A FEW MINUTES TO REGROUP AND RN ATTEMPTED AGAIN TO GIVE MEDICATION BUT PT CONTINUES TO REFUSE. DR. VILLEGAS WAS NOTIFIED OF REFUSAL OF MEDICATION (DEPAKOTE) NO NEW ORDERS WERE RECEIVED AT THAT TIME. ALL QUESTIONS ANSWERED AND SUPPORT WAS VOICED.
[2023-10-01] MEDS: hyDROXYzine 25 mg Capsule 50 MG PO (04:04)
[2023-10-01] MEDS: ibuprofen 600 mg Tablet PO (04:04)
--- NOTE | 2023-10-01 05:05 | PC.NURSE ---
PT RECEIVED MULTIPLE PRN'S THIS SHIFT FOR REPORTS OF INCREASED ANXIETY, PAIN AND INSOMNIA. RN ADMINISTERED HALDOL, TYLENOL AND TYLENOL EARLIER IN THE SHIFT. MEDICATIONS DEEMED EFFECTIVE. PT WAS ABLE TO REST AND SLEPT APPROXIMATELY 5 HOURS BEFORE WAKING UP AND REQUESTED MORE MEDICATIONS FOR PAIN AND ANXIETY. PT WAS GIVEN IBUPROFEN FOR PAIN AND VISTARIL 50 MG FOR ANXIETY. PT THEN WENT TO ROOM AND LAID DOWN IN BED WHERE HE CONTINUES TO REST WITH EYES CLOSED, NO DISTRESS NOTED AT THIS TIME.
[2023-10-01 06:00] VITALS: RESP 16
[2023-10-01] MEDS: nicotine 2 mg Gum BUCCAL ×2 (08:49→15:10)
[2023-10-01] MEDS: divalproex DR 250 mg Tablet PO ×2 (08:49→20:14)
[2023-10-01] MEDS: buPROPion XL (24 HR) 150 mg Tablet 300 MG PO (08:49)
[2023-10-01 11:30] VITALS: RESP 16
[2023-10-01] MEDS: oxyCODONE 5 mg IR Tab/Cap 10 MG PO (11:30)
[2023-10-01 14:00] VITALS: BP 97/63; PULSE 60; RESP 18; TEMP 36.4; O2SAT 98
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
[2023-10-01] MEDS: acetaminophen 325 mg Tablet 650 MG PO (17:41)
[2023-10-01 20:23] VITALS: BP 100/52; PULSE 68; RESP 18; TEMP 36.4; O2SAT 97
[2023-10-02 06:00] VITALS: RESP 16
[2023-10-02] MEDS: buPROPion XL (24 HR) 150 mg Tablet 300 MG PO (08:52)
[2023-10-02] MEDS: nicotine 21 mg Patch 1 PATCH TRANSDERMA (08:52)
[2023-10-02] MEDS: divalproex DR 250 mg Tablet PO (08:58)
[2023-10-02 13:05] VITALS: RESP 18
[2023-10-02] MEDS: oxyCODONE 5 mg IR Tab/Cap 10 MG PO (13:05)
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
[2023-10-02 14:00] VITALS: BP 103/63; PULSE 72; RESP 18; TEMP 36.6; O2SAT 94
[2023-10-02] MEDS: iohexol 350 mg/mL 500 mL Btl (per mL) IV (14:25)
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
[2023-10-02 20:27] VITALS: BP 100/65; PULSE 62; RESP 18; TEMP 36.5; O2SAT 95
[2023-10-03 06:00] VITALS: BP 96/60; PULSE 71; RESP 18; TEMP 36.3; O2SAT 95
[2023-10-03] MEDS: divalproex DR 250 mg Tablet PO (10:01)
[2023-10-03] MEDS: buPROPion XL (24 HR) 150 mg Tablet 300 MG PO (10:01)
[2023-10-03] MEDS: nicotine 2 mg Gum BUCCAL (11:35)
[2023-10-03] MEDS: nicotine 21 mg Patch 1 PATCH TRANSDERMA (12:44)
[2023-10-03 14:00] VITALS: BP 111/69; PULSE 64; RESP 20; TEMP 36.8; O2SAT 96
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
[2023-10-03 21:34] VITALS: BP 131/75; PULSE 68; RESP 18; TEMP 36.9; O2SAT 98
--- NOTE | 2023-10-03 21:34 | PC.NURSE ---
PT IN DAY ROOM AND WAS OBSERVED WALIING INTO ROOM WITH NO PANTS ON. PT WAS ASKED WHERE HIS PANTS WERE BUT PT STATED I WILL TAKE CARE OF IT, YOU JUST TELL THAT DOCTOR THAT I'M LEAVING TOMORROW. PT WAS OFFERED PRN MEDICATIONS BUT DECLINES STATING I DON'T WANT TO SLEEP, JUST TELL THE DOCOTR I'M LEAVING IN THE MORNING. PT DENIES SI/HI AND AVH AT THIS TIME. RATES ANXIETY 7/10 AND DEPRESSION 5/10. PT IS OBSERVED HAVING A FLAT AFFECT AND IS GUARDED WITH STAFF. PT IS NOTED TO BE WITHDRAWN AT TIMES. STAFF DID GET PT PANTS AND PT DID PUT HIS PANTS ON. ALL QUESTIONS ANSWERED AND SUPPORT WAS VOICED.
[2023-10-03 21:59] VITALS: RESP 16; O2SAT 98
[2023-10-03] MEDS: trazodone 50 mg Tablet PO (21:59)
[2023-10-03] MEDS: oxyCODONE 5 mg IR Tab/Cap 10 MG PO (21:59)
[2023-10-04] MEDS: acetaminophen 325 mg Tablet 650 MG PO (05:01)
--- NOTE | 2023-10-04 05:06 | PC.NURSE ---
PT RECEIVED PRN MEDICATIONS THIS SHIFT. PT WAS GIVEN TRAZODONE ORDERED FOR SLEEP. PT HAS SLEPT APPROXIMATELY 4-5 HOURS THIS SHIFT. PT HAS BEEN UP SEVERAL TIMES AND WILL GET A DRINK OR A SNACK AND IS OBSERVED WALKING AROUND THE UNIT. PT ALSO RECEIVED TYLENOL AND OXYCODONE ORDERED FOR PAIN. PT IS CURRENTLY AWAKE WATCHING TV, NO DISTRESS NOTED AT THIS TIME. PT HAS BEEN OBSERVED BEING SHORT TEMPERED AND DEMANDING TO GO HOME TODAY. PT IS ABLE TO BE VERBALLY REDIRECTED. SUPPORT VOICED.
[2023-10-04 06:00] VITALS: BP 109/59; PULSE 63; RESP 16; TEMP 36.3; O2SAT 98
[2023-10-04] MEDS: buPROPion XL (24 HR) 150 mg Tablet 300 MG PO (09:11)
[2023-10-04] MEDS: divalproex DR 250 mg Tablet PO ×2 (09:11→19:58)
[2023-10-04] MEDS: nicotine 2 mg Gum BUCCAL (10:41)
[2023-10-04 14:00] VITALS: BP 106/69; PULSE 64; RESP 13; TEMP 36.4; O2SAT 96
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
[2023-10-04 18:01] VITALS: RESP 16
[2023-10-04] MEDS: oxyCODONE 5 mg IR Tab/Cap 10 MG PO (18:01)
[2023-10-04] MEDS: trazodone 50 mg Tablet PO (19:59)
[2023-10-04 20:00] VITALS: BP 114/52; PULSE 69; RESP 16; TEMP 36.8; O2SAT 95
[2023-10-05 02:17] VITALS: RESP 17
[2023-10-05] MEDS: oxyCODONE 5 mg IR Tab/Cap 10 MG PO ×2 (02:17→15:16)
--- NOTE | 2023-10-05 06:40 | PC.NURSE ---
Attempted to obtain patients vitals this morning. Patient became a little agitated. Patient stated I dont see a reason for you doing that. That is all you guys do here. Take vitals and give med. Patient then stated I want to skip them CN notified.
[2023-10-05] MEDS: ibuprofen 600 mg Tablet PO (11:04)
[2023-10-05] MEDS: divalproex DR 250 mg Tablet PO ×2 (11:06→20:25)
[2023-10-05] MEDS: buPROPion XL (24 HR) 150 mg Tablet 300 MG PO (11:06)
[2023-10-05 14:00] VITALS: BP 100/64; PULSE 63; RESP 18; TEMP 36.4; O2SAT 95
[2023-10-05 15:16] VITALS: RESP 16; O2SAT 95
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
[2023-10-05] MEDS: nicotine 2 mg Gum BUCCAL (16:10)
[2023-10-05] MEDS: trazodone 50 mg Tablet PO (20:25)
[2023-10-05 20:46] VITALS: BP 128/82; PULSE 66; RESP 17; TEMP 36.3; O2SAT 93
[2023-10-06 05:03] VITALS: RESP 17
[2023-10-06] MEDS: oxyCODONE 5 mg IR Tab/Cap 10 MG PO ×2 (05:03→14:10)
--- NOTE | 2023-10-06 06:43 | PC.NURSE ---
Patient refused vitals.
[2023-10-06] MEDS: buPROPion XL (24 HR) 150 mg Tablet 300 MG PO (07:39)
[2023-10-06] MEDS: acetaminophen 325 mg Tablet 650 MG PO ×2 (07:40→18:42)
[2023-10-06] MEDS: divalproex DR 250 mg Tablet PO ×2 (07:41→20:13)
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
[2023-10-06 14:00] VITALS: BP 97/59; PULSE 81; RESP 20; TEMP 36.6; O2SAT 95
[2023-10-06 14:10] VITALS: RESP 16
[2023-10-06] MEDS: nicotine 2 mg Gum BUCCAL (14:10)
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
[2023-10-06] MEDS: ibuprofen 600 mg Tablet PO (20:12)
[2023-10-06] MEDS: trazodone 50 mg Tablet PO (20:13)
--- NOTE | 2023-10-06 20:43 | PC.NURSE ---
IN DAY ROOM, PT DENIES SI/HI AND AVH AT THIS TIME. RATES PAIN 4/10 IBUPROFEN 600 MG GIVEN ORDERED. SPEECH IS DELAYED BUT CLEAR. RATES ANXIETY 6/10 AND DEPRESSION 6/10. PT WAS GIVEN TRAZODONE 50 MG FOR SLEEP. PT ALSO TOOK HIS NIGHT TIME MEDICATIONS ORDERED. PT WAS OBSERVED WASHING HIS HAIR IN THE DAY ROOM SINK, WAS ABLE TO BE VERBALLY REDIRECTED AND PT WAS GIVEN A TOWEL. PT IS NOTED TO HAVE A FLAT AFFECT AND IS GUARDED WITH A DEPRESSED MOOD NOTED. ALL QUESTIONS WERE ANSWERED AND SUPPORT WAS VOICED.
[2023-10-06 20:45] VITALS: BP 116/69; PULSE 58; RESP 16; TEMP 36.5; O2SAT 98
[2023-10-07 05:08] VITALS: RESP 16; O2SAT 97
[2023-10-07] MEDS: oxyCODONE 5 mg IR Tab/Cap 10 MG PO ×2 (05:08→17:26)
[2023-10-07 06:00] VITALS: BP 94/55; PULSE 59; RESP 18; TEMP 36.3; O2SAT 99
--- NOTE | 2023-10-07 06:37 | PC.NURSE ---
PT RECEIVED PRN MEDICATIONS THIS SHIFT FOR PAIN AND SLEEP. PT RECEIVED PRN TRAZODONE ORDERED. MEDICATION WAS EFFECTIVE. PT WAS ABLE TO REST THROUGHOUT THE SHIFT AND HAS SLEPT APPROXIMATELY 7-8 HOURS THIS SHIFT ON AND OFF. PT RECEIVED PRN MEDICATIONS FOR PAIN, IBUPROFEN AND OXYCODONE. PT IS CURRENTLY IN DAY ROOM WATCHING TV WITH NO DISTRESS NOTED AT THIS TIME.
[2023-10-07] MEDS: buPROPion XL (24 HR) 150 mg Tablet 300 MG PO (11:48)
[2023-10-07] MEDS: divalproex DR 250 mg Tablet PO (11:48)
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
[2023-10-07 14:00] VITALS: BP 102/64; PULSE 62; RESP 16; TEMP 36.4; O2SAT 99
[2023-10-07 17:26] VITALS: RESP 16
[2023-10-07 19:44] VITALS: BP 122/79; PULSE 66; RESP 15; TEMP 36.4; O2SAT 95
[2023-10-07] MEDS: risperiDONE 1 mg Tablet 0.5 MG PO (20:23)
[2023-10-07] MEDS: haloperidol 5 mg Tablet PO (20:23)
[2023-10-07] MEDS: trazodone 50 mg Tablet PO (20:23)
--- NOTE | 2023-10-07 21:06 | PC.NURSE ---
IN DAY ROOM WATCHING TV. DENIES PAIN STATES HE IS NOT HURTING AND FEELS PRETTY GOOD, DENIES SI/HI AND AVH AT THIS TIME. RATES ANXIETY 01/08 AND DEPRESSION 11/08. PT RECEIVED TRAZODONE 50 MG FOR SLEEP AND HALDOL 5 MG FOR INCREASED REPORTS OF ANXIETY. PT IS NOTED TO BE CONFUSED AT TIMES BUT IS EASILY REDIRECTED BY STAFF. PT IS EASY TO AGITATED AND PT IS UPSET IF OTHER PTS SIT CLOSE TO HIM DUE TO PT HAVING PARANOIA AND BELIEVING THEY ARE TRYING TO GET NUMBERS OFF MY PAPERS. PT ASSURED MULTIPLE TIMES NO ONE IS LOOKING AT HIS PAPERS. ALL QUESTIONS ANSWERED AND SUPPORT WAS VOICED.
[2023-10-08 06:00] VITALS: BP 131/66; PULSE 59; RESP 17; TEMP 36.5; O2SAT 98
--- NOTE | 2023-10-08 06:30 | PC.NURSE ---
PT RECEIVED PRN MEDICATIONS THIS SHIFT FOR INCREASED REPORTS OF ANXIETY AND INSOMNIA. PT WAS GIVEN TRAZODONE FOR SLEEP AND HALDOL FOR ANXIETY. MEDICATIONS DEEMED EFFECTIVE, PT DID EVENTUALLY LAY DOWN AND GO TO SLEEP AFTER STAFF ENCOURAGEMENT. PT HAS SLEPT APPROXIMATELY 6-7 HOURS THIS SHIFT. PT CONTINUES TO REST WITH EYES CLOSED WITH NO DISTRESS NOTED.
[2023-10-08 09:02] VITALS: RESP 16; O2SAT 98
[2023-10-08] MEDS: buPROPion XL (24 HR) 150 mg Tablet 300 MG PO (09:02)
[2023-10-08] MEDS: oxyCODONE 5 mg IR Tab/Cap 10 MG PO (09:02)
[2023-10-08] MEDS: acetaminophen 325 mg Tablet 650 MG PO (09:51)
[2023-10-08] MEDS: nicotine 2 mg Gum BUCCAL ×2 (10:33→15:53)
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
[2023-10-08 14:00] VITALS: BP 111/69; PULSE 63; RESP 15; TEMP 36.5; O2SAT 99
[2023-10-08] MEDS: ibuprofen 600 mg Tablet PO (20:09)
[2023-10-08] MEDS: risperiDONE 1 mg Tablet 0.5 MG PO (20:09)
[2023-10-08] MEDS: trazodone 50 mg Tablet PO (20:09)
[2023-10-08] MEDS: hyDROXYzine 25 mg Capsule 50 MG PO (20:10)
[2023-10-08 20:46] VITALS: BP 122/75; PULSE 70; RESP 18; TEMP 36.3; O2SAT 98
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
--- NOTE | 2023-10-09 05:52 | PC.NURSE ---
PT REQUIRED PRN MEDICATIONS THIS SHIFT FOR INCREASED ANXIETY AND INSOMNIA. PT RECEIVED VISTARIL AND TRAZODONE ORDERED. MEDICATIONS DEEMED EFFECTIVE AT THIS TIME. PT HAS HAD NO OTHER COMPLAINTS OF ANXIETY AND HAS SLEPT APPROXIMATELY 9-10 HOURS THIS SHIFT. PT CONTINUES TO REST WITH EYES CLOSED WITH NO DISTRESS NOTED AT THIS TIME.
[2023-10-09 06:00] VITALS: RESP 16
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
[2023-10-09] MEDS: buPROPion XL (24 HR) 150 mg Tablet 300 MG PO (11:09)
[2023-10-09 14:00] VITALS: BP 128/70; PULSE 75; RESP 15; TEMP 36.6; O2SAT 97
[2023-10-09] MEDS: nicotine 2 mg Gum BUCCAL (14:38)
[2023-10-09] MEDS: haloperidol 5 mg Tablet PO (19:49)
[2023-10-09] MEDS: risperiDONE 1 mg Tablet 0.5 MG PO (19:49)
[2023-10-09] MEDS: trazodone 50 mg Tablet PO (19:49)
[2023-10-09 20:02] VITALS: BP 134/84; PULSE 70; RESP 18; TEMP 36.5; O2SAT 96
[2023-10-10 06:00] VITALS: RESP 16
--- NOTE | 2023-10-10 08:04 | PC.NURSE ---
PT OBSERVED SITTING ON BED PICKING AT UNSEEN ITEMS. PT IS SLOW TO RESPOND TO QUESTIONS AND HAS DIFFICULTY FINDING WORDS TO SAY. PT IN NOTED TO HAVE A FLAT AFFECT AND WITHDRAWS TO ROOM AT TIME. PT RATES PAIN IN BACK 6/10 MED NURSE NOTIFIED TO GIVE MEDICATIONS. DENIES SI/HI AND AVH AT THIS TIME. RATES ANXIETY 02/07 AND DEPRESSION /. DECLINES PRN MEDICATIONS TO REDUCE ANXIETY. PT IS OBSERVED BEING UNSTEADY ON FEET AT TIMES. STAFF NOTIFIED OF INCREASED FALL RISK STATUS. ALL QUESTIONS WERE ANSWERED AND SUPPORT VOICED.
[2023-10-10] MEDS: buPROPion XL (24 HR) 150 mg Tablet 300 MG PO (08:49)
[2023-10-10 14:00] VITALS: BP 126/77; PULSE 72; RESP 15; TEMP 37.1; O2SAT 96
[2023-10-10] MEDS: ibuprofen 600 mg Tablet PO (15:31)
[2023-10-10] MEDS: nicotine 2 mg Gum BUCCAL (17:09)
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
[2023-10-10] MEDS: risperiDONE 1 mg Tablet 0.5 MG PO (20:34)
[2023-10-10] MEDS: trazodone 50 mg Tablet PO (20:34)
[2023-10-10 20:36] VITALS: BP 131/76; PULSE 70; RESP 18; TEMP 36.4; O2SAT 97
[2023-10-11 06:00] VITALS: BP 105/68; PULSE 65; RESP 18; TEMP 36.3; O2SAT 98
[2023-10-11 09:43] VITALS: RESP 18
[2023-10-11] MEDS: oxyCODONE 5 mg IR Tab/Cap 10 MG PO (09:43)
[2023-10-11] MEDS: buPROPion XL (24 HR) 150 mg Tablet 300 MG PO (09:44)
[2023-10-11] MEDS: nicotine 2 mg Gum BUCCAL (09:44)
[2023-10-11 14:00] VITALS: RESP 16
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
[2023-10-11 20:01] VITALS: BP 97/63; PULSE 73; RESP 18; TEMP 36.8; O2SAT 96
[2023-10-11] MEDS: trazodone 50 mg Tablet PO (20:37)
[2023-10-11] MEDS: risperiDONE 1 mg Tablet 0.5 MG PO (20:37)
[2023-10-12] MEDS: nicotine 4 mg lozenge MUCOUS MEM ×3 (00:20→17:02)
[2023-10-12 06:00] VITALS: RESP 18
--- NOTE | 2023-10-12 06:48 | PC.NURSE ---
Due to patient being up all night, Per CN only RR documented.
[2023-10-12] MEDS: buPROPion XL (24 HR) 150 mg Tablet 300 MG PO (09:57)
[2023-10-12 10:05] VITALS: RESP 16
[2023-10-12] MEDS: oxyCODONE 5 mg IR Tab/Cap 10 MG PO (10:05)
--- NOTE | 2023-10-12 10:19 | PC.NURSE ---
This nurse went to check on patient. Patient was sitting on the floor next to his bed. This nurse asked patient what had happened. Patient stated that he was reaching for a sock on the floor when he lost his balance. Patient denied hitting his head. This nurse and Giancarlo Head RN helped patient to his feet. We then helped him put on his socks and pants. Patient denies any pain. Patient does not appear to have any reddened or bruised areas. bleaching supervisor notified. Dr. Carrillo notified. Patient encouraged to ask for help at any time. Understanding verbalized. Patient asked when his jeans would be dry. Patient confused.
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
[2023-10-12 14:00] VITALS: BP 103/69; PULSE 88; RESP 15; TEMP 36.8; O2SAT 96
[2023-10-12 20:15] VITALS: BP 104/69; PULSE 76; RESP 20; TEMP 36.4; O2SAT 97
[2023-10-12] MEDS: risperiDONE 1 mg Tablet 0.5 MG PO (20:43)
[2023-10-13 04:39] VITALS: RESP 16; O2SAT 98
[2023-10-13] MEDS: oxyCODONE 5 mg IR Tab/Cap 10 MG PO ×2 (04:39→15:18)
[2023-10-13 06:00] VITALS: BP 126/79; PULSE 76; RESP 16; O2SAT 98
[2023-10-13] MEDS: buPROPion XL (24 HR) 150 mg Tablet 300 MG PO (07:49)
[2023-10-13] MEDS: nicotine 2 mg Gum BUCCAL (08:55)
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
[2023-10-13 13:55] VITALS: BP 100/62; PULSE 71; RESP 16; TEMP 36.7; O2SAT 99
[2023-10-13 15:18] VITALS: RESP 16
[2023-10-13 20:41] VITALS: RESP 18
--- NOTE | 2023-10-13 20:41 | PC.NURSE ---
Attempted to obtain vitals from patient. Patient was sounds asleep. Only RR documented. Notified CN
[2023-10-13] MEDS: risperiDONE 1 mg Tablet 0.5 MG PO (21:58)
[2023-10-14 03:01] VITALS: RESP 16; O2SAT 97
[2023-10-14] MEDS: oxyCODONE 5 mg IR Tab/Cap 10 MG PO (03:01)
[2023-10-14 06:00] VITALS: BP 110/72; PULSE 76; RESP 16; O2SAT 97
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
--- NOTE | 2023-10-14 08:19 | PC.NURSE ---
During assessment, patient stated that he is pretty good. Patient denies SI, HI, AVH, depression and anxiety. Patient in dayroom, calmly watching TV.
[2023-10-14] MEDS: buPROPion XL (24 HR) 150 mg Tablet 300 MG PO (08:22)
[2023-10-14] MEDS: acetaminophen 325 mg Tablet 650 MG PO (08:22)
[2023-10-14 08:31] VITALS: BP 110/72; PULSE 76; RESP 16; O2SAT 97
--- NOTE | 2023-10-14 08:34 | DCPLANNER ---
IMM was printed and given to pt/guardian and a copy was placed in file.
== END 2023-10-14 10:44 | disposition skilled nursing facility (03) | DRG 881 ==
LOC: ER 12:15 → NP 18:17
PROVIDERS: Admitting Provider Psychiatry & Neurology Psychiatry; Emergency Provider Emergency Medicine; PCP General Practice; Visit Provider Psychiatry & Neurology Psychiatry
DX: F32.9 Major depressive disorder, single episode, unspecified (principal); R45.851 Suicidal ideations; Z81.1 Family history of alcohol abuse and dependence; F19.11 Other psychoactive substance abuse, in remission; Z87.820 Personal history of traumatic brain injury; Z91.51 Personal history of suicidal behavior; Z87.828 Personal history of other (healed) physical injury and trauma; F17.210 Nicotine dependence, cigarettes, uncomplicated; Z91.148 Patient's other noncompliance with medication regimen for other reason; R47.1 Dysarthria and anarthria; G93.89 Other specified disorders of brain
CPT/HCPCS: 70470; 80053; 80306; 80307; 85025; 97150; 97161; 97165; 97167; 97530; 99285; Q9967

== ENCOUNTER 2023-12-16 12:07 | Inpatient (IN) | payer MEDICARE, SELFPAY ==
--- NOTE | 2023-12-16 12:10 | ECG_ITS ---
[facility] Test Date: 2023-12-16 Pat Name: Ronny Graf Department: Room: Gender: Male [employer] Supervisor: : [id number] Requested By: Laurel Ocampo Order Number: [id number] Yoly MD: Wandy Santa M.D. Measurements Intervals [place] Rate: 66 P: 76 MD: 169 QRS: 75 QRSD: 90 T: 69 QT: 396 QTc: 416 Interpretive Statements SINUS RHYTHM Normal EKG Compared to ECG 11/06/2014 13:42:15 Sinus tachycardia no longer present Electronically Signed On 12-17-2023 12:42:12 CDT by Wandy Santa M.D. [id number]
[2023-12-16 12:21] VITALS: BP 144/82; PULSE 68; RESP 22; TEMP 36.6; O2SAT 96
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
--- NOTE | 2023-12-16 12:35 | PC.PHAR ---
PT IS FROM [facility] 12/16/23
[2023-12-16 14:51] LABS: Basophils % 0.6 %; Eosinophils # 0.1 10^3/uL (0.0-0.8); Eosinophils % 2.3 %; Hematocrit 42.9 % (37-53); Lymphocytes # 1.9 10^3/uL (0.8-4.8); Mean Corpuscular HGB Conc 33.3 g/dL (30-55); Mean Corpuscular Hemoglobin 32.4 pg (27-33); Mean Corpuscular Volume 97.3 fl (82-101); Monocytes # 0.6 10^3/uL (0.2-0.9); Monocytes % 11.8 %; Neutrophils # 2.19 10^3/uL (1.8-7.7); Neutrophils % 46.3 %; Nucleated Red Blood Cells % 0 %; Platelet Count 118 10^3/cmm (157-399); Red Blood Count 4.41 10^6/uL (3.85-5.65); Red Cell Distribution Width 14.1 % (12.1-15.1); White Blood Count 4.74 10^3/uL (3.29-11.43)
--- NOTE | 2023-12-16 14:54 | PC.NURSE ---
pt sister, rangel called asking ab patient but is not on pt contact list. pt asked if it is okay to give sister info, pt okayed.
[2023-12-16 15:06] LABS: Alanine Aminotransferase 56 U/L (0-41); Albumin Level 3.2 g/dL (3.5-5.2); Alcohol Level 42 mg/dL (0-10); Alkaline Phosphatase 130 U/L (40-130); Anion Gap 13.1 (5-19); Aspartate Amino Transferase 57 U/L (0-40); Blood Urea Nitrogen 10 mg/dL (8-23); Calcium 9.3 mg/dL (8.5-10.5); Carbon Dioxide 25 mmol/L (22-29); Chloride 106 mmol/L (98-107); Globulin 3.6 g/dL (1.3-4.6); Glomerular Filtration Rate 61.3 mL/min (90-130); Glucose 97 mg/dL (65-115); Osmolality Calculated 289 mOsm/kg (285-295); Potassium 4.1 mmol/L (3.5-5.1); Sodium 140 mmol/L (136-145); Total Bilirubin 0.7 mg/dL (0.15-1.2); Total Protein 6.8 g/dL (6.6-8.7)
[2023-12-16 15:11] LABS: Acetaminophen < 5.0 ug/mL (10-30); Salicylate < 0.3 mg/dL (3-10)
[2023-12-16 17:39] VITALS: BP 143/88; PULSE 66; O2SAT 98
[2023-12-16 18:09] LABS: Amphetamines Screen Urine Negative (Negative); Barbiturates Screen Urine Negative (Negative); Benzodiazepines Screen Urine Negative (Negative); Cocaine Screen Urine Negative (Negative); Opiate Screen Urine Negative (Negative); PCP Screen Urine Negative (Negative); THC Screen Urine Negative (Negative)
[2023-12-16 18:20] LABS: Specific Gravity, Urine 1.005 (1.005-1.030); Urine Appearance Clear (CLEAR); Urine Color Yellow (Yellow); pH Urine 7 (5-7)
[2023-12-16 18:21] LABS: Add Urine Culture? Yes; Bacteria Urine TRACE /hpf; Bilirubin Urine Neg (Negative); Blood Urine 3+ (Negative); Glucose Urine UA Norm (Normal); Ketones Urine Negative (Negative); Leukocyte Esterase Urine Trace (Negative); Nitrate Urine Negative (Negative); Protein Urine Neg (Negative); RBC Urine 15-25 /hpf (0-2); Squamous Epithelial Cell Urine 0-4 /hpf (0-5); Urobilinogen Urine 1 mg/dL (Negative); WBC Urine 0-4 /hpf (0-5)
--- NOTE | 2023-12-16 20:05 | PC.NURSE ---
pt resting quietly in room
--- NOTE | 2023-12-16 20:33 | PC.NURSE ---
pt yelling at sitter, I go to check on pt and he flips me off and states, get the fuck out of here
[2023-12-16 23:08] VITALS: BP 143/82; PULSE 74; RESP 16; O2SAT 96
[2023-12-17 02:20] VITALS: BP 140/82; RESP 18; O2SAT 98
[2023-12-17 05:44] VITALS: BP 140/71; PULSE 72; RESP 16; O2SAT 98
--- NOTE | 2023-12-17 14:09 | XRR_ITS ---
PROCEDURE INFORMATION: Exam: XR Chest Exam date and time: 12/17/2023 2:58 PM Age: 63 years old Clinical indication: Screening exam; Other screening; Additional info: Psych workup TECHNIQUE: Imaging protocol: Radiologic exam of the chest. Views: 1 view. COMPARISON: CT lung screening [id number] 01/09/2020 10:24 AM FINDINGS: Lungs: Lungs are clear. Pleural spaces: There is no pleural effusion or pneumothorax. Heart/Mediastinum: Cardiomediastinal contours are unremarkable. Bones/joints: Bones are unremarkable. XR/XR chest 1V portable [id number] IMPRESSION: No acute findings.
[2023-12-17 15:09] LABS: Thyroid Stimulating Hormone 1.94 uIU/mL (0.27-4.20)
[2023-12-17 15:10] LABS: Alcohol Level < 10 mg/dL (0-10)
[2023-12-17] MEDS: oxyCODONE 5 mg IR Tab/Cap PO (17:00)
--- NOTE | 2023-12-17 18:15 | PC.NURSE ---
PT REFUSING CHEST XRAY. PT YELLING AT NURSES I HOPE YOU ALL TONIGHT MOTHERFUCKERS PT DEESCALATED WHEN TOLD HE WOULD BE GIVEN MEDS.
[2023-12-17 18:19] VITALS: BP 132/78; PULSE 57; O2SAT 98
[2023-12-17 18:41] LABS: Adenovirus Not Detected (NOT DETECT); Chlamydia Pneumoniae Not Detected (NOT DETECT); Coronavirus 229E,HKU1,NL63,OC4 Not Detected (NOT DETECT); Human Metapneumovirus Not Detected (NOT DETECT); Human Rhinovirus/Enterovirus Not Detected (NOT DETECT); Influenza A Not Detected (NOT DETECT); Influenza A H1 Not Detected (NOT DETECT); Influenza A H1-2009 Not Detected (NOT DETECT); Influenza A H3 Not Detected (NOT DETECT); Influenza B Not Detected (NOT DETECT); Mycoplasma Pneumoniae Not Detected (NOT DETECT); Parainfluenza Virus Type 1 Not Detected (NOT DETECT); Parainfluenza Virus Type 2 Not Detected (NOT DETECT); Parainfluenza Virus Type 3 Not Detected (NOT DETECT); Parainfluenza Virus Type 4 Not Detected (NOT DETECT); Respiratory Syncytial Virus A Not Detected (NOT DETECT); Respiratory Syncytial Virus B Not Detected (NOT DETECT); SARS-COV-2 Not Detected (NOT DETECT)
--- NOTE | 2023-12-18 05:21 | DCPLANNER ---
Denied @ [facility] due to ETOH and TBI No beds @ [facility] Check back Tuesday
[2023-12-18 08:00] VITALS: BP 132/78; PULSE 57; RESP 16; TEMP 36.6; O2SAT 98
[2023-12-18 12:00] VITALS: PULSE 57; RESP 16
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
[2023-12-18 18:04] VITALS: RESP 16; O2SAT 96
[2023-12-18] MEDS: oxyCODONE 5 mg IR Tab/Cap 10 MG PO (18:04)
[2023-12-18] MEDS: bismuth subsalicylate 240 mL Btl 15 ML PO (18:05)
[2023-12-18 18:09] VITALS: BP 135/72; PULSE 73; RESP 16; O2SAT 96
[2023-12-19] MEDS: trazodone 50 mg Tablet PO ×2 (04:51→22:41)
[2023-12-19] MEDS: bismuth subsalicylate 240 mL Btl 15 ML PO ×2 (04:54→22:43)
[2023-12-19 04:55] VITALS: BP 132/67; PULSE 66; RESP 16; O2SAT 99
--- NOTE | 2023-12-19 04:56 | PC.NURSE ---
RN into room to administer medications as ordered in SEP to pt. pt denies any further requests at this time. pt is quiet and calm at this time resting in bed.
--- NOTE | 2023-12-19 10:41 | ED.C_ITS ---
HPI - Psych 2 General: Chief Complaint: Psychiatric Symptoms Stated Complaint: SI Time Seen by Provider: 12/16/23 12:09 History of Present Illness: pt has been starated on meds as recommended by psychiatry. has been recieving pain meds. No further behavioral disturbances. PFSH ED 2 PFSH: Medical History (Updated 12/16/23 @ 18:43 by Laurel Harvey MD) Psychiatric care Surgical History Previous back surgery Social History Smoking and tobacco/nicotine status: current every day tobacco/nicotine user Second hand smoke exposure: Yes Alcohol intake: former Substance/Drug Use: former Adopted: No Caregiver/support person: No Lives independently: Yes Housing: House Marital status: Single Number of children: 2 Number of grandchildren: 0 Highest education level completed: 10th Grade service: No Current occupational status: disabled Current occupational exposures/hazards: No Pets and animals: Yes Leisure activites: other Sexually active: No Do you think of yourself as: Straight/Heterosexual Current gender identity: Male Jacque/Christian: Seventh Day Scientologist Special jacque needs: No Agree to transfusion: Yes Physical Exam 2 Narrative: EXAM NARRATIVE: General: Alert, no acute distress. Skin: warm and dry Head: Normocephalic Neck: Trachea midline Eye: Extraocular movements are intact. Ears, nose, mouth and throat: Oral mucosa moist Respiratory: Respirations are non-labored Musculoskeletal: Normal ROM Neurological: Alert and oriented, No focal neurological deficit observed. Psychiatric: Cooperative, appropriate mood & affect. Course 2 Vital Signs: Vital signs: Vital Signs Temperature 97.9 F 12/18/23 08:00 Pulse Rate 66 12/19/23 04:55 Respiratory Rate 16 12/19/23 04:55 Blood Pressure 132/67 12/19/23 04:55 Pulse Oximetry 99 12/19/23 04:55 Oxygen Delivery Me thod Room Air 12/19/23 04:55 MDM - Psych Medical Decision Making Still looking for placement. Lab Data 12/16/23 14:36 12/16/23 14:36 Radiology Impressions Chest X-Ray 12/17/23 14:09 IMPRESSION: No acute findings. Laboratory Results WBC 4.74 10^3/uL (3.29-11.43) 12/16/23 14:36 RBC 4.41 10^6/uL (3.85-5.65) 12/16/23 14:36 Hgb 14.30 g/dL (11.27-16.99) 12/16/23 14:36 Hct 42.9 % (37-53) 12/16/23 14:36 MCV 97.3 fl (82-101) 12/16/23 14:36 MCH 32.4 pg (27-33) 12/16/23 14:36 MCHC 33.3 g/dL (30-55) 12/16/23 14:36 RDW 14.1 % (12.1-15.1) 12/16/23 14:36 Plt Count 118 10^3/cmm (157-399) L 12/16/23 14:36 MPV 10.0 fL (7.4-10.4) 12/16/23 14:36 Neut % (Auto) 46.3 % 12/16/23 14:36 Lymph % (Auto) 39.0 % 12/16/23 14:36 Yates % (Auto) 11.8 % 12/16/23 14:36 Eos % (Auto) 2.3 % 12/16/23 14:36 Baso % (Auto) 0.6 % 12/16/23 14:36 Neut # (Auto) 2.19 10^3/uL (1.8-7.7) 12/16/23 14:36 Lymph # (Auto) 1.9 10^3/uL (0.8-4.8) 12/16/23 14:36 Yates # (Auto) 0.6 10^3/uL (0.2-0.9) 12/16/23 14:36 Eos # (Auto) 0.1 10^3/uL (0.0-0.8) 12/16/23 14:36 Baso # (Auto) 0.0 10^3/uL (0.0-0.1) 12/16/23 14:36 Nucleated RBC % (auto) 0 % 12/16/23 14:36 Nucleated RBCs # 0.0 /100WBC 12/16/23 14:36 Sodium 140 mmol/L (136-145) 12/16/23 14:36 Potassium 4.1 mmol/L (3.5-5.1) 12/16/23 14:36 Chloride 106 mmol/L (98-107) 12/16/23 14:36 Carbon Dioxide 25 mmol/L (22-29) 12/16/23 14:36 Anion Gap 13.1 (5-19) 12/16/23 14:36 BUN 10 mg/dL (8-23) 12/16/23 14:36 Creatinine 1.2 mg/dL (0.7-1.2) 12/16/23 14:36 GFR Calculation 61.3 mL/min (90-130) L 12/16/23 14:36 Glucose 97 mg/dL (65-115) 12/16/23 14:36 Calculated Osmolality 289 mOsm/kg (285-295) 12/16/23 14:36 Calcium 9.3 mg/dL (8.5-10.5) 12/16/23 14:36 Total Bilirubin 0.7 mg/dL (0.15-1.2) 12/16/23 14:36 AST 57 U/L (0-40) H 12/16/23 14:36 ALT 56 U/L (0-41) H 12/16/23 14:36 Alkaline Phosphatase 130 U/L (40-130) 12/16/23 14:36 Total Protein 6.8 g/dL (6.6-8.7) 12/16/23 14:36 Albumin 3.2 g/dL (3.5-5.2) L 12/16/23 14:36 Globulin 3.6 g/dL (1.3-4.6) 12/16/23 14:36 TSH 1.94 uIU/mL (0.27-4.20) 12/17/23 14:36 Urine Color Yellow (Yellow) 12/16/23 17:37 Urine Appearance Clear (CLEAR) 12/16/23 17:37 Urine pH 7 (5-7) 12/16/23 17:37 Ur Specific [place] 1.005 (1.005-1.030) 12/16/23 17:37 Urine Protein Neg (Negative) 12/16/23 17:37 Urine Glucose (UA) Norm (Normal) 12/16/23 17:37 Urine Ketones Negative (Negative) 12/16/23 17:37 Urine Blood 3+ (Negative) H 12/16/23 17:37 Urine Nitrate Negative (Negative) 12/16/23 17:37 Urine Bilirubin Neg (Negative) 12/16/23 17:37 Urine Urobilinogen 1 mg/dL (Negative) H 12/16/23 17:37 Ur Leukocyte Esterase Trace (Negative) H 12/16/23 17:37 Urine RBC 15-25 /hpf (0-2) H 12/16/23 17:37 Urine WBC 0-4 /hpf (0-5) H 12/16/23 17:37 Ur Squamous Epith Cells 0-4 /hpf (0-5) H 12/16/23 17:37 Amorphous Sediment Not Reportable 12/16/23 17:37 Urine Bacteria Trace /hpf (NONE) 12/16/23 17:37 Salicylates < 0.3 mg/dL (3-10) L 12/16/23 14:36 Urine Opiates Screen Negative ng/mL (Negative) 12/16/23 17:37 Acetaminophen < 5.0 ug/mL (10-30) L 12/16/23 14:36 Ur Barbiturates Screen Negative ng/mL (Negative) 12/16/23 17:37 Ur Phencyclidine Scrn Negative ng/mL (Negative) 12/16/23 17:37 Ur Amphetamines Screen Negative ng/mL (Negative) 12/16/23 17:37 U Benzodiazepines Scrn Negative ng/mL (Negative) 12/16/23 17:37 Urine Cocaine Screen Negative ng/mL (Negative) 12/16/23 17:37 U Marijuana (THC) Screen Negative ng/mL (Negative) 12/16/23 17:37 Ethyl Alcohol < 10 mg/dL (0-10) 12/17/23 14:36 Coronavirus 229E (PCR) Not detected (NOT DETECT) 12/17/23 15:03 SARS-CoV-2 (PCR) Not detected (NOT DETECT) 12/17/23 15:03 No radiology studies performed this visit Discharge Plan Discharge Patient Disposition: Xfer Psychiatric Hosp Clinical Impression: TBI (traumatic brain injury), Major depressive disorder without psychotic features, Behavioral problems, Verbalizes suicidal thoughts Condition: Stable Referrals: Darin Franklin DO [Primary Care Provider] - Coding 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
--- NOTE | 2023-12-19 15:18 | W.ED.PSYCHS ---
HPI - Psych General: Chief Complaint: Psychiatric Symptoms Stated Complaint: SI Time Seen by Provider: 12/16/23 12:09 History of Present Illness: Patient remained stable in his room. Still with some behavioral issues but seems to be improved. He has not had much trouble today. [facility] ED PFSH: Medical History (Updated 12/16/23 @ 18:43 by Laurel Harvey MD) Psychiatric care Surgical History Previous back surgery Social History Smoking and tobacco/nicotine status: current every day tobacco/nicotine user Second hand smoke exposure: Yes Alcohol intake: former Substance/Drug Use: former Adopted: No Caregiver/support person: No Lives independently: Yes Housing: House Marital status: Single Number of children: 2 Number of grandchildren: 0 Highest education level completed: 10th Grade service: No Current occupational status: disabled Current occupational exposures/hazards: No Pets and animals: Yes Leisure activites: other Sexually active: No Do you think of yourself as: Straight/Heterosexual Current gender identity: Male Jacque/Confucianism: Day Samaritan Special jacque needs: No Agree to transfusion: Yes Physical Exam Narrative: EXAM NARRATIVE: General: Alert, no acute distress. Skin: warm and dry Head: Normocephalic Neck: Trachea midline Eye: Extraocular movements are intact. Ears, nose, mouth and throat: Oral mucosa moist Respiratory: Respirations are non-labored Musculoskeletal: Normal ROM Neurological: Alert and oriented, No focal neurological deficit observed. Psychiatric: Cooperative at times Course Vital Signs: Vital signs: Vital Signs Temperature 97.9 F 12/18/23 08:00 Pulse Rate 66 12/19/23 04:55 Respiratory Rate 16 12/19/23 04:55 Blood Pressure 132/67 12/19/23 04:55 Pulse Oximetry 99 12/19/23 04:55 Oxygen Delivery Me thod Room Air 12/19/23 04:55 MDM - Psych Medical Decision Making Consultation: Spoke with Dr. Carrillo who has graciously accepted the patient to the floor. Hopefully get his medications adjusted and he can go back to where he was living before. Assessment and plan: -Admission to neuropsychiatric unit for continued evaluation and treatment. - All lab work was reviewed and interpreted personally by myself, the ER physician - Evaluation and treatment of this problem were appropriate in the emergency setting Lab Data 12/16/23 14:36 12/16/23 14:36 Radiology Impressions Chest X-Ray 12/17/23 14:09 IMPRESSION: No acute findings. Laboratory Results WBC 4.74 10^3/uL (3.29-11.43) 12/16/23 14:36 RBC 4.41 10^6/uL (3.85-5.65) 12/16/23 14:36 Hgb 14.30 g/dL (11.27-16.99) 12/16/23 14:36 Hct 42.9 % (37-53) 12/16/23 14:36 MCV 97.3 fl (82-101) 12/16/23 14:36 MCH 32.4 pg (27-33) 12/16/23 14:36 MCHC 33.3 g/dL (30-55) 12/16/23 14:36 RDW 14.1 % (12.1-15.1) 12/16/23 14:36 Plt Count 118 10^3/cmm (157-399) L 12/16/23 14:36 MPV 10.0 fL (7.4-10.4) 12/16/23 14:36 Neut % (Auto) 46.3 % 12/16/23 14:36 Lymph % (Auto) 39.0 % 12/16/23 14:36 Benzie % (Auto) 11.8 % 12/16/23 14:36 Eos % (Auto) 2.3 % 12/16/23 14:36 Baso % (Auto) 0.6 % 12/16/23 14:36 Neut # (Auto) 2.19 10^3/uL (1.8-7.7) 12/16/23 14:36 Lymph # (Auto) 1.9 10^3/uL (0.8-4.8) 12/16/23 14:36 Benzie # (Auto) 0.6 10^3/uL (0.2-0.9) 12/16/23 14:36 Eos # (Auto) 0.1 10^3/uL (0.0-0.8) 12/16/23 14:36 Baso # (Auto) 0.0 10^3/uL (0.0-0.1) 12/16/23 14:36 Nucleated RBC % (auto) 0 % 12/16/23 14:36 Nucleated RBCs # 0.0 /100WBC 12/16/23 14:36 Sodium 140 mmol/L (136-145) 12/16/23 14:36 Potassium 4.1 mmol/L (3.5-5.1) 12/16/23 14:36 Chloride 106 mmol/L (98-107) 12/16/23 14:36 Carbon Dioxide 25 mmol/L (22-29) 12/16/23 14:36 Anion Gap 13.1 (5-19) 12/16/23 14:36 BUN 10 mg/dL (8-23) 12/16/23 14:36 Creatinine 1.2 mg/dL (0.7-1.2) 12/16/23 14:36 GFR Calculation 61.3 mL/min (90-130) L 12/16/23 14:36 Glucose 97 mg/dL (65-115) 12/16/23 14:36 Calculated Osmolality 289 mOsm/kg (285-295) 12/16/23 14:36 Calcium 9.3 mg/dL (8.5-10.5) 12/16/23 14:36 Total Bilirubin 0.7 mg/dL (0.15-1.2) 12/16/23 14:36 AST 57 U/L (0-40) H 12/16/23 14:36 ALT 56 U/L (0-41) H 12/16/23 14:36 Alkaline Phosphatase 130 U/L (40-130) 12/16/23 14:36 Total Protein 6.8 g/dL (6.6-8.7) 12/16/23 14:36 Albumin 3.2 g/dL (3.5-5.2) L 12/16/23 14:36 Globulin 3.6 g/dL (1.3-4.6) 12/16/23 14:36 TSH 1.94 uIU/mL (0.27-4.20) 12/17/23 14:36 Urine Color Yellow (Yellow) 12/16/23 17:37 Urine Appearance Clear (CLEAR) 12/16/23 17:37 Urine pH 7 (5-7) 12/16/23 17:37 Ur Specific [place] 1.005 (1.005-1.030) 12/16/23 17:37 Urine Protein Neg (Negative) 12/16/23 17:37 Urine Glucose (UA) Norm (Normal) 12/16/23 17:37 Urine Ketones Negative (Negative) 12/16/23 17:37 Urine Blood 3+ (Negative) H 12/16/23 17:37 Urine Nitrate Negative (Negative) 12/16/23 17:37 Urine Bilirubin Neg (Negative) 12/16/23 17:37 Urine Urobilinogen 1 mg/dL (Negative) H 12/16/23 17:37 Ur Leukocyte Esterase Trace (Negative) H 12/16/23 17:37 Urine RBC 15-25 /hpf (0-2) H 12/16/23 17:37 Urine WBC 0-4 /hpf (0-5) H 12/16/23 17:37 Ur Squamous Epith Cells 0-4 /hpf (0-5) H 12/16/23 17:37 Amorphous Sediment Not Reportable 12/16/23 17:37 Urine Bacteria Trace /hpf (NONE) 12/16/23 17:37 Salicylates < 0.3 mg/dL (3-10) L 12/16/23 14:36 Urine Opiates Screen Negative ng/mL (Negative) 12/16/23 17:37 Acetaminophen < 5.0 ug/mL (10-30) L 12/16/23 14:36 Ur Barbiturates Screen Negative ng/mL (Negative) 12/16/23 17:37 Ur Phencyclidine Scrn Negative ng/mL (Negative) 12/16/23 17:37 Ur Amphetamines Screen Negative ng/mL (Negative) 12/16/23 17:37 U Benzodiazepines Scrn Negative ng/mL (Negative) 12/16/23 17:37 Urine Cocaine Screen Negative ng/mL (Negative) 12/16/23 17:37 U Marijuana (THC) Screen Negative ng/mL (Negative) 12/16/23 17:37 Ethyl Alcohol < 10 mg/dL (0-10) 12/17/23 14:36 Coronavirus 229E (PCR) Not detected (NOT DETECT) 12/17/23 15:03 SARS-CoV-2 (PCR) Not detected (NOT DETECT) 12/17/23 15:03 No radiology studies performed this visit Discharge Plan Discharge Patient Disposition: Admitted As Inpatient Clinical Impression: TBI (traumatic brain injury), Major depressive disorder without psychotic features, Behavioral problems, Verbalizes suicidal thoughts Condition: Stable Coding Level of Care Code 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
--- NOTE | 2023-12-19 15:21 | PC.SOCIAL ---
12/19/23 [facility] reports that they do not have any beds; but may have one later today. Faxed referral at [phone]. Unable to reach Riddhi ZambranoStarr or Alexey. [facility] Denied on 12/17 for TBI. [place] reports that they do not have any male beds available- [address] [facility], [place], has beds available. Referral faxed. Returned call and denied r/t TBI.-[address] [facility],, faxed at [phone]. [facility]- No beds available, possibly tomorrow. [facility]- No beds currently, can call again tonight around [phone] and see if they have bed available. [facility]- No beds and several waiting- Denied for TBI. [facility]- Limited beds available, referral faxed at [phone].
[2023-12-19 16:00] VITALS: BP 155/75; PULSE 71; O2SAT 93
--- NOTE | 2023-12-19 17:37 | PC.NURSE ---
PT ARRIVED TO [facility] AT 1615 VIA WHEELCHAIR, ER STAFF AND SECURITY. PT IS UNCOOPERATIVE ON ADMISSION. STATES I HAVEN'T EATEN OR SLEPT IN 4 DAYS AND I AM NOT DOING NOTHING UNTIL I EAT AND SLEEP. PSYCHIATRIC ASSESSMENT ATTEMPTED BUT PT WILL NOT COOPERATE. THIS RN AND SOUND ENGINEERING TECHNICIAN ATTEMPTED TIMES THREE TO DRESS OUT PT FROM ER PAPER SCRUBS BUT PT REFUSED STATING LET ME EAT AND SLEEP. PT WAS BROUGHT 2 COOKIES, CRACKERS AND LEMONADE, PT LOOKED AT THE LEMONDADE AND ASKED IF IT WAS MADE AT THE STORE OR IF WE MADE IT. PT WAS INFORMED THE STAFF MADE THE LEMONADE. PT THEN ASKED IF THE WATER WAS GOOD. PT WAS INFORMED THAT THE WATER IS FILTERED. PT THEN DRANK IT AND ATE A SNACK. PT THEN LAID DOWN AND CONTINUED TO RESIST BEING DRESSED OUT. DR. VILLEGAS WAS NOTIFIED OF PT REFUSING TO GET DRESSED OUT. DR. VILLEGAS SAID TO LET THE PT REST AND IF HE CONTINUES TO REFUSE DRESSING OUT THEN AT SHIFT CHANGE HAVE SECURITY COME TO N[facility] AND ASSIST PT TO DRESS OUT. AT 1745 PT STARTED TO TAKE OFF PAPER SCRUBS AND DRESS INTO SCRUBS. THIS RN LOOKED AT PT LEGS AND ARMS AND NO VISIBLE SKIN ISSUES WERE OBSERVED. PT WOULD NOT ALLOW RN TO ASSESS ANY OTHER AREAS. RN AND DR. VILLEGAS REVIEWED PT MEDICATIONS AND THE FOLLOWING MEDICATIONS WERE RESTARTED: BUPROPION 300 MG PO Q DAY, OXYCODONE 10 MG PO Q 4 HOURS PRN PAIN, HOLD RISPERIDONE 0.5 MG AT HS AND START INVEGA 3 MG PO DAILY TO START TONIGHT AT BEDTIME. ORDERS PLACED AND RN ATTEMPTED TO EDUCATE PT BUT DUE TO MENTAL COGNITION RN IS NOT ABLE TO BE EDUCATE. PT CONTINUES TO BE RESISTANT TO LEARNING A ND UNABLE TO COMPREHEND COMPLEX PROCESSES . AT 1800 SECURITY HERE IN NPU AND SOUND ENGINEERING TECHNICIAN GAVE RN A CIGARETTE CELLOPHANE THAT CONTAINED 3 BROWN PILLS, 1/4 BROWN PILL WITH THE IMPRINT 222 ON IT AND 1 PINK PILL AND 1/2 PINK PILL WITH THE IMPRINT [id number]. THIS RN AND CHILD CARE ASSOCIATE DESTROYED ALL MEDICATIONS IN CELLOPHANE. SELF SEALING FUEL TANK REPAIRER WAS NOTIFIED ALONG WITH NPU VP MARKET[employer] SERVICES AND SKIN. PT IS CURRENTLY RESTING IN BED WITH EYES CLOSED,NO DISTRESS NOTED AT THIS TIME. SUPPORT VOICED.
[2023-12-19 22:40] VITALS: RESP 18
[2023-12-19] MEDS: paliperidone ER 3 mg Tablet PO (22:40)
[2023-12-19] MEDS: oxyCODONE 5 mg IR Tab/Cap 10 MG PO (22:40)
--- NOTE | 2023-12-19 22:46 | PC.NURSE ---
Patient behavior Patient refused vitals, refused to come to desk for medication earlier. When patient came to the desk just now he complained in a loud voice that he did not get his medication and made vulgar hand movements to the staff. Patient was reminded that some of his medication required him to request them and that he needed to be present at the nurses station to verify his ID.
[2023-12-20 06:00] VITALS: BP 99/61; PULSE 65; RESP 17; O2SAT 93
[2023-12-20] MEDS: buPROPion XL (24 HR) 300 mg Tablet PO (10:28)
[2023-12-20 14:00] VITALS: BP 102/64; PULSE 76; RESP 20; TEMP 36.6; O2SAT 97
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
[2023-12-20 18:12] VITALS: RESP 12
[2023-12-20] MEDS: oxyCODONE 5 mg IR Tab/Cap 10 MG PO (18:12)
[2023-12-20 19:23] VITALS: BP 98/64; PULSE 89; RESP 17; O2SAT 98
[2023-12-20] MEDS: paliperidone ER 3 mg Tablet PO (20:00)
[2023-12-20] MEDS: bismuth subsalicylate 240 mL Btl 15 ML PO (20:00)
[2023-12-20] MEDS: trazodone 50 mg Tablet PO (20:00)
[2023-12-21 06:00] VITALS: BP 95/60; PULSE 62; RESP 14; O2SAT 95
[2023-12-21] MEDS: buPROPion XL (24 HR) 300 mg Tablet PO (08:54)
[2023-12-21 08:58] VITALS: RESP 17
[2023-12-21] MEDS: oxyCODONE 5 mg IR Tab/Cap 10 MG PO (08:58)
[2023-12-21 13:55] VITALS: BP 91/54; PULSE 69; RESP 15; TEMP 36.6; O2SAT 97
--- NOTE | 2023-12-21 14:36 | PC.OT ---
OT eval attempted with pt declining; will attempt again at later time.
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
[2023-12-21] MEDS: paliperidone ER 3 mg Tablet PO (21:14)
[2023-12-21] MEDS: trazodone 50 mg Tablet PO (21:14)
[2023-12-21 21:33] VITALS: BP 93/50; PULSE 81; RESP 17; O2SAT 98
[2023-12-22 06:00] VITALS: BP 105/66; PULSE 68; RESP 17; O2SAT 94
[2023-12-22] MEDS: buPROPion XL (24 HR) 300 mg Tablet PO (08:07)
--- NOTE | 2023-12-22 08:58 | PC.NURSE ---
IN BED RESTING, AROUSES TO VOICE. DENIES PAIN. DENIES SI/HI AND AVH AT THIS TIME. PT RATES ANXIETY AND DEPRESSION 010. PT IS OBSERVED BEING WITHDRAWN WITH FLAT AFFECT. PT CONTINUES TO HAVE CONFUSION BUT IS ABLE TO BE REDIRECTED. ALL QUESTIONS ANSWERED AND SUPPORT VOICED. RATES ANXIETY AND DEPRESSION 0/10.
--- NOTE | 2023-12-22 09:41 | PC.OT ---
OT marek attempted with nursing stating to hold pt; will attempt again at later time.
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
[2023-12-22 14:00] VITALS: BP 104/66; PULSE 74; RESP 14; TEMP 36.8; O2SAT 95
[2023-12-22 15:50] VITALS: RESP 16; O2SAT 97
[2023-12-22] MEDS: OLANZapine 5 mg ODT PO (15:50)
[2023-12-22] MEDS: oxyCODONE 5 mg IR Tab/Cap 10 MG PO (15:50)
[2023-12-22 20:48] VITALS: BP 94/57; PULSE 67; RESP 17; O2SAT 95
[2023-12-22] MEDS: paliperidone ER 6 mg Tablet PO (20:48)
[2023-12-22] MEDS: trazodone 50 mg Tablet PO (20:48)
--- NOTE | 2023-12-22 22:15 | PC.NURSE ---
Patient was ambulating to dayroom and got a ahead of himself and tripped due to his momentum. Patient did not hit his head or sustaine any visible injuries upon assessment. Patient denied any discomfort post getting up. Patient ambulated with stand-by assesset to a chair in the dayroom. V/S were obtained : P-90, R-17, O2- 99%, BP-136/82. Doctor Gerardo was notified.
[2023-12-23 06:00] VITALS: BP 100/60; PULSE 65; RESP 17; O2SAT 95
[2023-12-23] MEDS: buPROPion XL (24 HR) 300 mg Tablet PO (08:13)
[2023-12-23] MEDS: benztropine 1 mg Tablet PO (08:13)
[2023-12-23] MEDS: acetaminophen 325 mg Tablet 650 MG PO (08:13)
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
[2023-12-23 14:00] VITALS: BP 118/66; PULSE 57; RESP 20; TEMP 36.5; O2SAT 97
--- NOTE | 2023-12-23 15:10 | PC.OT ---
OT marek attempted with nursing asking OT to hold pt due to pt's irritability; will attempt again at later time.
[2023-12-23] MEDS: nicotine 2 mg Gum BUCCAL (18:02)
[2023-12-23 19:16] VITALS: BP 111/69; PULSE 112; RESP 18; TEMP 36.1; O2SAT 97
[2023-12-23] MEDS: trazodone 50 mg Tablet PO (21:42)
[2023-12-23] MEDS: paliperidone ER 6 mg Tablet PO (21:43)
[2023-12-24 00:23] VITALS: RESP 18; O2SAT 97
[2023-12-24] MEDS: oxyCODONE 5 mg IR Tab/Cap 10 MG PO (00:23)
[2023-12-24 06:00] VITALS: BP 124/75; PULSE 82; RESP 18; O2SAT 95
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
[2023-12-24] MEDS: buPROPion XL (24 HR) 300 mg Tablet PO (09:35)
[2023-12-24 14:00] VITALS: BP 111/69; PULSE 68; RESP 20; TEMP 36.6; O2SAT 95
--- NOTE | 2023-12-24 15:37 | PC.NURSE ---
PT BECAME AGITATED DURING VISITATION HE THOUGHT ANOTHER PATIENT'S VISITOR WAS LAUGHING AT HIM. THEY BEGAN TO YELL AT EACH OTHER HOWEVER, NO PHYSICAL ALTERCATION HAPPENED AND EVERYBODY INVOLVED WAS RE-DIRECTABLE BY DOCUMENTATION SPECIALIST.
--- NOTE | 2023-12-24 18:34 | PC.NURSE ---
RANDOM ROOM CHECK PERFORMED BY STAFF. PT WAS COOPERATIVE. NO CONTRABAND FOUND IN ROOM.
[2023-12-24 19:40] VITALS: BP 120/71; PULSE 91; RESP 18; O2SAT 96
[2023-12-24] MEDS: trazodone 50 mg Tablet PO (20:40)
[2023-12-24] MEDS: paliperidone ER 6 mg Tablet PO (20:40)
[2023-12-25 02:36] VITALS: RESP 18; O2SAT 95
[2023-12-25] MEDS: oxyCODONE 5 mg IR Tab/Cap 10 MG PO (02:36)
[2023-12-25 06:00] VITALS: BP 117/75; PULSE 78; RESP 18; TEMP 36.6; O2SAT 97
[2023-12-25] MEDS: buPROPion XL (24 HR) 300 mg Tablet PO (09:33)
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
[2023-12-25 14:00] VITALS: BP 111/67; PULSE 70; RESP 20; TEMP 36.3; O2SAT 96
--- NOTE | 2023-12-25 17:36 | PC.NURSE ---
RANDOM ROOM CHECK PERFORMED BY STAFF. PT WAS COOPERATIVE. NO CONTRABAND FOUND IN ROOM.
[2023-12-25] MEDS: paliperidone ER 6 mg Tablet PO (20:37)
[2023-12-25] MEDS: trazodone 50 mg Tablet PO (20:37)
[2023-12-25 20:45] VITALS: BP 134/78; PULSE 79; RESP 17; O2SAT 97
[2023-12-26 06:00] VITALS: RESP 16
--- NOTE | 2023-12-26 06:15 | PC.NURSE ---
asked pt to obtain vital signs. pt refused. respiration rate 16.
--- NOTE | 2023-12-26 08:19 | PC.NURSE ---
IN BED RESTING. DENIES SI/HI AND AVH AT THIS TIME. PT REPORTS BACK PAIN 4/10, IBUPROFEN 600 MG GIVEN ORDERED. RATES ANXIETY 5/10, VISTARIL 50 MG GIVEN ORDERED FOR ANXIETY. RATES DEPRESSION 5/10. PT STATES HIS GOAL IS I REALLY DON'T CARE ABOUT THAT. PT REPORTS HE WANTS TO BE DISCHARGED SOON I CAN. PT IS OBSERVED HAVING A FLAT AFFECT WITH DEPRESSED MOOD. ALL QUESTIONS ANSWERED AND SUPPORT VOICED.
[2023-12-26] MEDS: hyDROXYzine 25 mg Capsule 50 MG PO (08:21)
[2023-12-26] MEDS: buPROPion XL (24 HR) 300 mg Tablet PO (08:21)
[2023-12-26] MEDS: ibuprofen 600 mg Tablet PO (08:22)
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
[2023-12-26 14:00] VITALS: BP 133/72; PULSE 67; RESP 16; TEMP 36.7; O2SAT 98
[2023-12-26] MEDS: nicotine 4 mg lozenge MUCOUS MEM (18:30)
[2023-12-26 19:48] VITALS: BP 114/73; PULSE 72; RESP 17; O2SAT 97
[2023-12-26] MEDS: paliperidone ER 6 mg Tablet PO (20:51)
[2023-12-26] MEDS: trazodone 50 mg Tablet PO (20:51)
[2023-12-27 03:48] VITALS: RESP 18; O2SAT 97
[2023-12-27] MEDS: oxyCODONE 5 mg IR Tab/Cap 10 MG PO (03:48)
[2023-12-27 06:00] VITALS: BP 119/80; PULSE 86; RESP 18; TEMP 36.3; O2SAT 97
[2023-12-27] MEDS: buPROPion XL (24 HR) 300 mg Tablet PO (08:15)
[2023-12-27 13:23] VITALS: BP 111/62; PULSE 65; RESP 12; TEMP 36.4; O2SAT 98
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
[2023-12-27] MEDS: paliperidone ER 6 mg Tablet PO (21:04)
[2023-12-27] MEDS: hyDROXYzine 25 mg Capsule 50 MG PO (21:51)
[2023-12-27 22:07] VITALS: BP 136/75; PULSE 67; RESP 16; TEMP 36.5; O2SAT 96
[2023-12-28 06:00] VITALS: BP 135/77; PULSE 69; RESP 15; TEMP 36.7; O2SAT 96
[2023-12-28] MEDS: buPROPion XL (24 HR) 300 mg Tablet PO (08:38)
[2023-12-28] MEDS: acetaminophen 325 mg Tablet 650 MG PO (09:46)
[2023-12-28 11:49] VITALS: RESP 18
[2023-12-28] MEDS: oxyCODONE 5 mg IR Tab/Cap 10 MG PO (11:49)
--- NOTE | 2023-12-28 12:34 | PC.NURSE ---
Patient room searched for contraband. Snacks and extra clothing confiscated.
[2023-12-28 13:30] VITALS: BP 102/70; PULSE 83; RESP 14; TEMP 36.5; O2SAT 96
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
[2023-12-28 20:41] VITALS: BP 112/68; PULSE 71; RESP 16; O2SAT 98
[2023-12-28] MEDS: paliperidone ER 6 mg Tablet PO (20:54)
[2023-12-28] MEDS: hyDROXYzine 25 mg Capsule 50 MG PO (20:54)
[2023-12-28] MEDS: trazodone 50 mg Tablet PO (22:40)
[2023-12-29 06:21] VITALS: BP 114/59; PULSE 63; RESP 16; TEMP 36.7; O2SAT 94
[2023-12-29] MEDS: buPROPion XL (24 HR) 300 mg Tablet PO (08:59)
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
[2023-12-29 14:00] VITALS: BP 118/72; PULSE 67; RESP 20; TEMP 36.6; O2SAT 96
[2023-12-29 21:03] VITALS: BP 101/67; PULSE 98; RESP 17; TEMP 36.3; O2SAT 95
[2023-12-29] MEDS: paliperidone ER 6 mg Tablet PO (21:05)
[2023-12-30 06:00] VITALS: BP 113/65; PULSE 66; RESP 16; TEMP 36.5; O2SAT 96
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
[2023-12-30] MEDS: hyDROXYzine 25 mg Capsule 50 MG PO (08:55)
[2023-12-30] MEDS: ibuprofen 600 mg Tablet PO (08:55)
[2023-12-30] MEDS: buPROPion XL (24 HR) 300 mg Tablet PO (08:55)
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
[2023-12-30] MEDS: paliperidone palmitate 234 mg Syringe IM (13:47)
[2023-12-30 14:00] VITALS: BP 117/77; PULSE 85; RESP 20; TEMP 36.6; O2SAT 97
[2023-12-30 18:26] VITALS: RESP 18; O2SAT 97
[2023-12-30] MEDS: oxyCODONE 5 mg IR Tab/Cap 10 MG PO (18:26)
[2023-12-30] MEDS: paliperidone ER 6 mg Tablet PO (20:24)
[2023-12-30 22:00] VITALS: BP 117/63; PULSE 81; RESP 18; TEMP 36.3; O2SAT 95
[2023-12-31 02:04] VITALS: RESP 18
[2023-12-31] MEDS: oxyCODONE 5 mg IR Tab/Cap 10 MG PO ×3 (02:04→20:44)
[2023-12-31 06:00] VITALS: BP 132/68; PULSE 74; RESP 18; TEMP 36.3; O2SAT 93
[2023-12-31] MEDS: buPROPion XL (24 HR) 300 mg Tablet PO (09:05)
[2023-12-31 11:22] VITALS: RESP 18
--- NOTE | 2023-12-31 12:13 | PC.NURSE ---
Room searched for contraband. Patient pen and extra pair of scrubs confiscated.
[2023-12-31 14:00] VITALS: BP 108/69; PULSE 72; RESP 20; TEMP 36.6; O2SAT 98
[2023-12-31] MEDS: nicotine 2 mg Gum BUCCAL (18:33)
[2023-12-31 20:44] VITALS: RESP 16
[2023-12-31] MEDS: paliperidone ER 6 mg Tablet PO (20:44)
[2023-12-31 21:03] VITALS: BP 110/70; PULSE 81; RESP 17; TEMP 36.8; O2SAT 98
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
[2024-01-01] VITALS (7 sets, daily range): BP systolic 96–112; BP diastolic 58–73; PULSE 86–95; RESP 15–20; TEMP 36.6–36.8; O2SAT 95–97
[2024-01-01] MEDS: oxyCODONE 5 mg IR Tab/Cap 10 MG PO ×4 (03:23→23:59)
[2024-01-01] MEDS: nicotine 2 mg Gum BUCCAL (09:01)
[2024-01-01] MEDS: buPROPion XL (24 HR) 300 mg Tablet PO (09:01)
--- NOTE | 2024-01-01 12:27 | PC.NURSE ---
Patient room searched for contraband. None found.
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
[2024-01-01] MEDS: paliperidone ER 6 mg Tablet PO (20:52)
[2024-01-02 06:00] VITALS: BP 118/75; PULSE 80; RESP 17; TEMP 36.4; O2SAT 97
[2024-01-02 06:44] VITALS: RESP 17; O2SAT 97
[2024-01-02] MEDS: oxyCODONE 5 mg IR Tab/Cap 10 MG PO ×3 (06:44→21:59)
--- NOTE | 2024-01-02 09:19 | PC.NURSE ---
IN BED RESTING . DENIES SI/HI AND AVH AT THIS TIME. DENIES PAIN. RATES ANXIETY AND DEPRESSION 0/10. PT IS NOTED HAVING FLAT AFFECT. PT IS EVASIVE WITH ASSESSMENT. PT CONTINUES TO REST. ALL QUESTIONS ANSWERED AND SUPPORT VOICED.
[2024-01-02] MEDS: buPROPion XL (24 HR) 300 mg Tablet PO (11:56)
[2024-01-02] MEDS: ibuprofen 600 mg Tablet PO (11:56)
[2024-01-02] MEDS: hyDROXYzine 25 mg Capsule 50 MG PO (11:56)
[2024-01-02 13:09] VITALS: BP 96/57; PULSE 96; RESP 16; O2SAT 96
--- NOTE | 2024-01-02 16:47 | PC.NURSE ---
NEW ORDERS WERE RECEIVED FROM DR. GRACIA TO GIVE 156 MG OF INVEGA IM TO THE DELTOID ON 01/03/24. ORDERS PLACED. PT UPDATED ON NEW ORDERS AND HAS NO QUESTIONS SUPPORT VOICED.
[2024-01-02 17:11] VITALS: RESP 17
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
--- NOTE | 2024-01-02 18:40 | PC.NURSE ---
VISTARIL 50 MG GIVEN EARLY IN THE SHIFT FOR REPORTS OF INCREASED ANXIETY. MEDICATION DEEMED EFFECTIVE PT HAS BEEN RESTING ALL DAY AND HAS NO OTHER COMPLAINTS OF ANXIETY. SUPPORT VOICED.
[2024-01-02] MEDS: paliperidone ER 6 mg Tablet PO (20:48)
[2024-01-02 20:49] VITALS: BP 90/52; PULSE 81; RESP 16; TEMP 36.6; O2SAT 95
[2024-01-02 21:59] VITALS: RESP 18; O2SAT 95
[2024-01-03 06:00] VITALS: BP 127/83; PULSE 73; RESP 17; TEMP 36.8; O2SAT 97
[2024-01-03 09:18] VITALS: RESP 16
[2024-01-03] MEDS: buPROPion XL (24 HR) 300 mg Tablet PO (09:18)
[2024-01-03] MEDS: benztropine 1 mg Tablet PO (09:18)
[2024-01-03] MEDS: oxyCODONE 5 mg IR Tab/Cap 10 MG PO ×2 (09:18→16:36)
[2024-01-03] MEDS: nicotine 4 mg lozenge MUCOUS MEM ×2 (11:25→16:21)
[2024-01-03 13:46] VITALS: BP 108/69; PULSE 79; RESP 20; TEMP 36.6; O2SAT 96
[2024-01-03 16:36] VITALS: RESP 16
[2024-01-03] MEDS: paliperidone palmitate 156 mg Syringe IM (16:37)
--- NOTE | 2024-01-03 16:38 | PC.NURSE ---
Administered Invega 156mg/mL into patient's left deltoid muscle. Patient tolerated well. Lot: [id number] EXP: [id number]
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
[2024-01-03] MEDS: bismuth subsalicylate 240 mL Btl 15 ML PO (19:41)
[2024-01-03 20:06] VITALS: BP 118/63; PULSE 79; RESP 12; TEMP 36.4; O2SAT 94
[2024-01-03] MEDS: paliperidone ER 3 mg Tablet PO (21:03)
[2024-01-03] MEDS: trazodone 50 mg Tablet PO (21:03)
[2024-01-04 05:50] VITALS: RESP 12; O2SAT 94
[2024-01-04] MEDS: oxyCODONE 5 mg IR Tab/Cap 10 MG PO ×2 (05:50→18:15)
[2024-01-04 06:00] VITALS: BP 123/73; PULSE 85; RESP 17; TEMP 36.4; O2SAT 95
[2024-01-04] MEDS: buPROPion XL (24 HR) 300 mg Tablet PO (08:08)
--- NOTE | 2024-01-04 08:15 | PC.NURSE ---
Watching tv in the dayroom. Patient seems upbeat this morning. He does seem to be having visual hallucinations as he asked this nurse if he could have a broom to sweep up the presents the rats left. He pointed to the floor in the dayroom and there was not anything there. Did deny avh though and denies si/hi.
[2024-01-04 14:00] VITALS: BP 111/66; PULSE 77; RESP 20; TEMP 36.7; O2SAT 94
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
[2024-01-04 18:15] VITALS: RESP 18
[2024-01-04] MEDS: paliperidone ER 3 mg Tablet PO (21:36)
[2024-01-04 22:00] VITALS: BP 120/69; PULSE 74; RESP 16; TEMP 36.4; O2SAT 97
[2024-01-05 00:19] VITALS: RESP 17
[2024-01-05] MEDS: oxyCODONE 5 mg IR Tab/Cap 10 MG PO ×2 (00:19→17:42)
[2024-01-05 06:00] VITALS: BP 110/72; PULSE 72; RESP 16; O2SAT 98
--- NOTE | 2024-01-05 09:30 | PC.NURSE ---
RESTING IN BED, AROUSES BRIEFLY. PT DENIES PAIN. DENIES SI/HI AND AVH AT THIS TIME. PT IS WITHDRAWN TO ROOM. DID NOT GET UP TO EAT BREAKFAST EVEN THOUGH STAFF ENCOURAGED MULTIPLE TIMES. RATES ANXIETY AND DEPRESSION 05/10. STATES FROM BEING IN THIS [facility]. PT CONTINUES TO HAVE DISORGANIZED THOUGHT PROCESS, ANXIOUS/DEPRESSED MOOD, AND CONFUSION REMAINS INTERMITTEN THROUGHOUT THE DAY. PT WENT BACK TO SLEEP AND TOLD RN TO JUST GET OUT OF HERE AND LEAVE ME ALONE. SUPPORT WAS VOICED.
[2024-01-05] MEDS: buPROPion XL (24 HR) 300 mg Tablet PO (09:35)
[2024-01-05 14:00] VITALS: BP 114/67; PULSE 71; RESP 20; TEMP 36.6; O2SAT 95
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
[2024-01-05 17:42] VITALS: RESP 16
[2024-01-05 19:25] VITALS: BP 114/62; PULSE 66; RESP 15; TEMP 36.9; O2SAT 97
[2024-01-06] MEDS: oxyCODONE 5 mg IR Tab/Cap 10 MG PO ×2 (05:22→12:58)
[2024-01-06 06:00] VITALS: BP 119/73; PULSE 91; RESP 15; TEMP 36.6; O2SAT 97
[2024-01-06] MEDS: nicotine 4 mg lozenge MUCOUS MEM (06:02)
[2024-01-06] MEDS: buPROPion XL (24 HR) 300 mg Tablet PO (08:31)
[2024-01-06 12:58] VITALS: RESP 15
[2024-01-06 13:46] VITALS: BP 114/73; PULSE 79; RESP 16; TEMP 36.4; O2SAT 99
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
[2024-01-06 20:03] VITALS: BP 102/59; PULSE 70; RESP 16; O2SAT 96
[2024-01-07 01:19] VITALS: RESP 17
[2024-01-07] MEDS: oxyCODONE 5 mg IR Tab/Cap 10 MG PO ×2 (01:19→19:34)
[2024-01-07 06:00] VITALS: BP 117/78; PULSE 74; RESP 18; TEMP 36.5; O2SAT 98
[2024-01-07] MEDS: acetaminophen 325 mg Tablet 650 MG PO ×2 (08:45→22:06)
[2024-01-07] MEDS: buPROPion XL (24 HR) 300 mg Tablet PO (08:45)
[2024-01-07] MEDS: bismuth subsalicylate 240 mL Btl 15 ML PO (12:24)
[2024-01-07 14:00] VITALS: BP 102/62; PULSE 78; RESP 17; TEMP 36.7; O2SAT 96
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
[2024-01-07 19:34] VITALS: RESP 18; O2SAT 96
[2024-01-07 19:43] VITALS: BP 113/68; PULSE 92; RESP 18; TEMP 36.4; O2SAT 96
[2024-01-07] MEDS: nicotine 4 mg lozenge MUCOUS MEM (21:19)
[2024-01-08 06:00] VITALS: BP 129/82; PULSE 69; RESP 18; TEMP 36.7; O2SAT 98
[2024-01-08] MEDS: buPROPion XL (24 HR) 300 mg Tablet PO (08:20)
[2024-01-08 10:58] VITALS: RESP 16
[2024-01-08] MEDS: oxyCODONE 5 mg IR Tab/Cap 10 MG PO (10:58)
[2024-01-08 14:00] VITALS: BP 132/76; PULSE 69; RESP 16; TEMP 37.1; O2SAT 97
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
[2024-01-08 22:00] VITALS: BP 118/65; PULSE 75; RESP 16; O2SAT 97
[2024-01-09 06:00] VITALS: BP 112/71; PULSE 78; RESP 18; O2SAT 98
[2024-01-09 06:30] VITALS: RESP 20
[2024-01-09] MEDS: oxyCODONE 5 mg IR Tab/Cap 10 MG PO (06:30)
[2024-01-09] MEDS: buPROPion XL (24 HR) 300 mg Tablet PO (08:54)
--- NOTE | 2024-01-09 10:31 | PC.NURSE ---
Patient's room searched for contraband. Extra pair of socks confiscated.
[2024-01-09] MEDS: nicotine 4 mg lozenge MUCOUS MEM (13:39)
[2024-01-09 14:00] VITALS: BP 134/79; PULSE 87; RESP 18; TEMP 36.2; O2SAT 97
[2024-01-09] MEDS: acetaminophen 325 mg Tablet 650 MG PO (15:32)
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
[2024-01-09 21:07] VITALS: BP 91/51; PULSE 70; RESP 17; TEMP 36.4; O2SAT 94
[2024-01-10 05:42] VITALS: RESP 18
[2024-01-10] MEDS: oxyCODONE 5 mg IR Tab/Cap 10 MG PO ×2 (05:42→16:34)
[2024-01-10] MEDS: acetaminophen 325 mg Tablet 650 MG PO (09:23)
[2024-01-10] MEDS: nicotine 4 mg lozenge MUCOUS MEM ×3 (09:24→16:34)
[2024-01-10] MEDS: buPROPion XL (24 HR) 300 mg Tablet PO (09:24)
[2024-01-10 14:00] VITALS: BP 134/77; PULSE 80; RESP 16; TEMP 36.8; O2SAT 98
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
[2024-01-10 16:34] VITALS: RESP 18
[2024-01-10 20:00] VITALS: BP 157/69; PULSE 80; RESP 20; TEMP 36.8; O2SAT 97
[2024-01-10 22:00] VITALS: BP 157/69; PULSE 80; RESP 20; TEMP 36.8; O2SAT 97
[2024-01-11 06:00] VITALS: BP 127/67; PULSE 70; RESP 18; TEMP 36.7; O2SAT 94
[2024-01-11 07:41] VITALS: RESP 15; O2SAT 94
[2024-01-11] MEDS: nicotine 4 mg lozenge MUCOUS MEM ×3 (07:41→16:14)
[2024-01-11] MEDS: oxyCODONE 5 mg IR Tab/Cap 10 MG PO (07:41)
[2024-01-11] MEDS: buPROPion XL (24 HR) 300 mg Tablet PO (08:15)
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
[2024-01-11 14:00] VITALS: BP 124/72; PULSE 76; RESP 18; TEMP 36.6; O2SAT 97
[2024-01-11 20:20] VITALS: BP 110/63; PULSE 72; RESP 16; TEMP 36.6; O2SAT 96
[2024-01-12 06:00] VITALS: BP 128/66; PULSE 73; RESP 18; TEMP 36.7; O2SAT 96
[2024-01-12 08:28] VITALS: RESP 16
[2024-01-12] MEDS: oxyCODONE 5 mg IR Tab/Cap 10 MG PO ×2 (08:28→13:24)
[2024-01-12] MEDS: buPROPion XL (24 HR) 300 mg Tablet PO (08:29)
[2024-01-12 13:24] VITALS: RESP 16
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
[2024-01-12 14:00] VITALS: BP 110/65; PULSE 92; RESP 22; TEMP 36.9; O2SAT 96
[2024-01-12] MEDS: acetaminophen 325 mg Tablet 650 MG PO (17:00)
[2024-01-12 21:32] VITALS: BP 112/65; PULSE 86; RESP 16; TEMP 36.9; O2SAT 97
[2024-01-13 06:00] VITALS: BP 102/72; PULSE 86; RESP 16; TEMP 36.9; O2SAT 94
[2024-01-13 06:56] VITALS: RESP 18
[2024-01-13] MEDS: oxyCODONE 5 mg IR Tab/Cap 10 MG PO ×2 (06:56→20:54)
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
[2024-01-13] MEDS: buPROPion XL (24 HR) 300 mg Tablet PO (09:34)
[2024-01-13] MEDS: nicotine 4 mg lozenge MUCOUS MEM ×2 (11:46→17:47)
[2024-01-13 13:28] VITALS: BP 100/61; PULSE 79; RESP 16; TEMP 36.9; O2SAT 97
[2024-01-13 20:36] VITALS: BP 120/66; PULSE 84; RESP 16; TEMP 36.7; O2SAT 96
[2024-01-13 20:54] VITALS: RESP 17
[2024-01-14 06:00] VITALS: BP 115/57; PULSE 77; RESP 17; TEMP 36.7; O2SAT 94
[2024-01-14] MEDS: buPROPion XL (24 HR) 300 mg Tablet PO (08:27)
[2024-01-14 09:22] VITALS: RESP 16
[2024-01-14] MEDS: oxyCODONE 5 mg IR Tab/Cap 10 MG PO (09:22)
[2024-01-14] MEDS: nicotine 4 mg lozenge MUCOUS MEM ×2 (11:19→17:50)
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
[2024-01-14 14:00] VITALS: BP 111/74; PULSE 80; RESP 16; TEMP 36.9; O2SAT 96
[2024-01-14] MEDS: acetaminophen 325 mg Tablet 650 MG PO (17:50)
[2024-01-14 19:41] VITALS: BP 132/74; PULSE 77; RESP 17; TEMP 36.6; O2SAT 97
[2024-01-15 06:00] VITALS: RESP 16
[2024-01-15 07:23] VITALS: RESP 16
[2024-01-15] MEDS: oxyCODONE 5 mg IR Tab/Cap 10 MG PO (07:23)
[2024-01-15] MEDS: buPROPion XL (24 HR) 300 mg Tablet PO (07:23)
[2024-01-15] MEDS: acetaminophen 325 mg Tablet 650 MG PO (11:23)
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
[2024-01-15 14:00] VITALS: BP 102/70; PULSE 74; RESP 16; TEMP 36.9; O2SAT 98
[2024-01-15 20:00] VITALS: BP 109/65; PULSE 73; RESP 16; TEMP 36.3; O2SAT 96
[2024-01-16 06:00] VITALS: BP 138/73; PULSE 71; RESP 16; TEMP 36.6; O2SAT 96
[2024-01-16 07:40] VITALS: RESP 16
[2024-01-16] MEDS: oxyCODONE 5 mg IR Tab/Cap 10 MG PO (07:40)
[2024-01-16] MEDS: buPROPion XL (24 HR) 300 mg Tablet PO (07:40)
[2024-01-16] MEDS: acetaminophen 325 mg Tablet 650 MG PO ×2 (13:39→18:03)
[2024-01-16 14:00] VITALS: BP 126/75; PULSE 88; RESP 16; TEMP 36.6; O2SAT 98
[2024-01-16] MEDS: nicotine 4 mg lozenge MUCOUS MEM (20:44)
[2024-01-16] MEDS: trazodone 50 mg Tablet PO (20:44)
[2024-01-16 21:16] VITALS: BP 95/53; PULSE 75; RESP 16; TEMP 36.4; O2SAT 96
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
[2024-01-17 06:00] VITALS: BP 123/68; PULSE 66; RESP 16; O2SAT 96
[2024-01-17 08:08] VITALS: RESP 18
[2024-01-17] MEDS: oxyCODONE 5 mg IR Tab/Cap 10 MG PO (08:08)
[2024-01-17] MEDS: nicotine 4 mg lozenge MUCOUS MEM ×3 (08:08→20:22)
[2024-01-17] MEDS: buPROPion XL (24 HR) 300 mg Tablet PO (08:08)
[2024-01-17] MEDS: acetaminophen 325 mg Tablet 650 MG PO ×2 (13:54→20:21)
[2024-01-17 14:00] VITALS: BP 101/65; PULSE 76; RESP 18; TEMP 36.5; O2SAT 98
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
[2024-01-17 20:20] VITALS: BP 109/71; PULSE 67; RESP 16; TEMP 36.5; O2SAT 96
[2024-01-17] MEDS: trazodone 50 mg Tablet PO (20:22)
[2024-01-18 06:00] VITALS: RESP 16
[2024-01-18] MEDS: buPROPion XL (24 HR) 300 mg Tablet PO (09:24)
[2024-01-18 09:31] VITALS: RESP 15; O2SAT 96
[2024-01-18] MEDS: oxyCODONE 5 mg IR Tab/Cap 10 MG PO (09:31)
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
[2024-01-18] MEDS: acetaminophen 325 mg Tablet 650 MG PO (12:40)
[2024-01-18 14:00] VITALS: BP 112/68; PULSE 67; RESP 20; TEMP 36.6; O2SAT 97
[2024-01-18] MEDS: nicotine 4 mg lozenge MUCOUS MEM (18:19)
[2024-01-18 20:59] VITALS: BP 91/59; PULSE 69; RESP 15; TEMP 36.5; O2SAT 97
[2024-01-19 06:00] VITALS: BP 106/61; PULSE 69; RESP 16; TEMP 36.4; O2SAT 96
[2024-01-19 06:33] VITALS: RESP 16; O2SAT 96
[2024-01-19] MEDS: oxyCODONE 5 mg IR Tab/Cap 10 MG PO (06:33)
[2024-01-19] MEDS: buPROPion XL (24 HR) 300 mg Tablet PO (08:05)
[2024-01-19 13:43] VITALS: BP 102/65; PULSE 72; RESP 16; TEMP 36.9; O2SAT 96
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
[2024-01-19] MEDS: nicotine 4 mg lozenge MUCOUS MEM (18:16)
[2024-01-19 19:48] VITALS: BP 128/72; PULSE 75; RESP 18; TEMP 36.5; O2SAT 97
[2024-01-19] MEDS: trazodone 50 mg Tablet PO (20:08)
[2024-01-20 05:14] VITALS: RESP 18
[2024-01-20] MEDS: oxyCODONE 5 mg IR Tab/Cap 10 MG PO (05:14)
[2024-01-20 06:00] VITALS: BP 103/65; PULSE 83; RESP 18; TEMP 36.4; O2SAT 95
[2024-01-20] MEDS: nicotine 4 mg lozenge MUCOUS MEM ×3 (07:25→14:11)
--- NOTE | 2024-01-20 07:52 | PC.NURSE ---
Patient denies avh and si/hi. Patient wanted to know if hospital people were talking about him staying here for good. This RN told him he would not be staying here forever and that we were looking for placement. Patient verbalized understanding. He stated he was a bit anxious about where he would be going. He endorsed back pain at a 6/10, but said he did not need any pain medication at this time.
[2024-01-20] MEDS: buPROPion XL (24 HR) 300 mg Tablet PO (08:51)
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
[2024-01-20 13:53] VITALS: BP 117/71; PULSE 72; RESP 17; TEMP 36.5; O2SAT 100
[2024-01-20 20:23] VITALS: BP 104/51; PULSE 73; RESP 16; TEMP 36.6; O2SAT 97
[2024-01-21 06:00] VITALS: BP 117/67; PULSE 69; RESP 16; TEMP 36.6; O2SAT 96
[2024-01-21 07:12] VITALS: RESP 16
[2024-01-21] MEDS: oxyCODONE 5 mg IR Tab/Cap 10 MG PO (07:12)
[2024-01-21] MEDS: buPROPion XL (24 HR) 300 mg Tablet PO (09:07)
[2024-01-21] MEDS: nicotine 4 mg lozenge MUCOUS MEM ×3 (09:09→21:16)
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
[2024-01-21 14:00] VITALS: BP 106/67; PULSE 67; RESP 16; TEMP 36.6; O2SAT 98
[2024-01-21 19:47] VITALS: BP 104/64; PULSE 77; RESP 16; TEMP 36.7; O2SAT 97
[2024-01-21] MEDS: trazodone 50 mg Tablet PO (21:17)
[2024-01-22 06:00] VITALS: BP 110/66; PULSE 66; RESP 16; TEMP 36.4; O2SAT 94
[2024-01-22] MEDS: buPROPion XL (24 HR) 300 mg Tablet PO (08:38)
[2024-01-22] MEDS: nicotine 4 mg lozenge MUCOUS MEM ×2 (08:38→18:41)
[2024-01-22 08:40] VITALS: RESP 15
[2024-01-22] MEDS: oxyCODONE 5 mg IR Tab/Cap 10 MG PO ×2 (08:40→14:21)
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
[2024-01-22 14:00] VITALS: BP 106/67; PULSE 71; RESP 17; TEMP 36.6; O2SAT 97
[2024-01-22 14:21] VITALS: RESP 16
[2024-01-22] MEDS: trazodone 50 mg Tablet PO (20:11)
[2024-01-22 20:13] VITALS: BP 124/75; PULSE 68; RESP 17; TEMP 36.4; O2SAT 98
[2024-01-23 06:00] VITALS: BP 105/58; PULSE 65; RESP 17; O2SAT 94
[2024-01-23 08:08] VITALS: RESP 16
[2024-01-23] MEDS: oxyCODONE 5 mg IR Tab/Cap 10 MG PO (08:08)
[2024-01-23] MEDS: buPROPion XL (24 HR) 300 mg Tablet PO (08:09)
--- NOTE | 2024-01-23 08:38 | PC.NURSE ---
During morning assessment, patient denies SI, HI, AVH, depression, and anxiety. Patient reports back pain 02/07. This offered to make a heat compress, but patient declined. Pain medication given. Patient then went to dayroom to watch TV. Calm and cooperative during assessment.
[2024-01-23] MEDS: nicotine 4 mg lozenge MUCOUS MEM ×2 (08:45→14:02)
[2024-01-23 14:00] VITALS: BP 104/69; PULSE 73; RESP 16; TEMP 36.6; O2SAT 97
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
[2024-01-23 19:45] VITALS: BP 113/66; PULSE 72; RESP 16; TEMP 36.3; O2SAT 98
[2024-01-24 06:00] VITALS: BP 107/69; PULSE 65; RESP 16; O2SAT 96
[2024-01-24 07:56] VITALS: RESP 16
[2024-01-24] MEDS: buPROPion XL (24 HR) 300 mg Tablet PO (07:56)
[2024-01-24] MEDS: oxyCODONE 5 mg IR Tab/Cap 10 MG PO (07:56)
--- NOTE | 2024-01-24 08:57 | PC.NURSE ---
Patient denies avh and si/hi. Patient appears to be very disheveled this morning. Staff attempted to get him to shower this morning, but he politely refused multiple times. Patient did say he would shave. He endorses poor sleep and says he's not sure why he didn't sleep well. Did rate back pain at a 7/10.
[2024-01-24] MEDS: nicotine 4 mg lozenge MUCOUS MEM ×3 (11:44→17:52)
[2024-01-24 13:47] VITALS: BP 107/62; PULSE 71; RESP 16; TEMP 36.4; O2SAT 97
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
[2024-01-24 22:00] VITALS: BP 132/69; PULSE 76; RESP 18; TEMP 36.6; O2SAT 95
[2024-01-25 06:00] VITALS: BP 118/64; PULSE 73; RESP 18; TEMP 36.5; O2SAT 96
[2024-01-25 06:25] VITALS: RESP 16; O2SAT 96
[2024-01-25] MEDS: oxyCODONE 5 mg IR Tab/Cap 10 MG PO (06:25)
[2024-01-25] MEDS: nicotine 4 mg lozenge MUCOUS MEM ×2 (08:16→12:31)
[2024-01-25] MEDS: buPROPion XL (24 HR) 300 mg Tablet PO (08:16)
--- NOTE | 2024-01-25 10:38 | P.NPUDS_ITS ---
Diagnoses at Discharge Discharge Diagnosis (1) Major depressive disorder without psychotic features: Status: Acute (2) Suicidal ideation: Status: Resolved (3) TBI (traumatic brain injury): Status: Acute (4) Impulse control disorder, unspecified: Status: Acute Reason for Visit Reason for Visit: SI Involuntary Hold Information 96 Hour Hold: 96 Hour Involuntary Admission: No 96 Hour Hold Ending Date: 09/22/23 96 Hour Hold Ending Time: 12:01 Mental Status Exam MSE Comments: This is a slender white male looking older than his stated age in hospital scrubs with limited grooming and adequate eye contact. No abnormal involuntary motor movements except for mild psychomotor retardation. He was more cooperative and was alert on the unit. Speech with some decrease in productivity and normal in volume with no dysarthria noted. Mood described as pretty good, his affect was less restricted today. Thought process was linear. Thought content: Patient denied suicidal or homicidal ideation. No clear delusional thinking. He did not report any auditory or visual hallucinations and he did not appear to be responding to internal stimuli. His attention and concentration were improved although memory appeared mostly reliable but none were formally tested. He was alert and oriented to person and place. He recognized the advertising writer of the note. His insight and judgment was limited. His impulse control appeared to be improving. Discharge Data Studies Completed and Pending: Completed Studies During Hospitalization Category Date Time Status XR chest 1V anselmo ble [id number] Stat Exams 12/17/23 14:09 Completed Radiology Impressions Chest X-Ray 12/17/23 14:09 IMPRESSION: No acute findings. Laboratory Results WBC 4.74 10^3/uL (3.2 9-11.43) 12/16/23 14:36 RBC 4.41 10^6/uL (3.8 5-5.65) 12/16/23 14:36 Hgb 14.30 g/dL (11.27 -16.99) 12/16/23 14:36 Hct 42.9 % (37-53) 12/16/23 14:36 MCV 97.3 fl (82-101) 12/16/23 14:36 MCH 32.4 pg (27-33) 12/16/23 14:36 MCHC 33.3 g/dL (30-55) 12/16/23 14:36 RDW 14.1 % (12.1-15.1 ) 12/16/23 14:36 Plt Count 118 10^3/cmm (157 -399) L 12/16/23 14:36 MPV 10.0 fL (7.4-10.4 ) 12/16/23 14:36 Neut % (Auto) 46.3 % 12/16/23 14:36 Lymph % (Auto) 39.0 % 12/16/23 14:36 Anderson % (Auto) 11.8 % 12/16/23 14:36 Eos % (Auto) 2.3 % 12/16/23 14:36 Baso % (Auto) 0.6 % 12/16/23 14:36 Neut # (Auto) 2.19 10^3/uL (1.8 -7.7) 12/16/23 14:36 Lymph # (Auto) 1.9 10^3/uL (0.8- 4.8) 12/16/23 14:36 Anderson # (Auto) 0.6 10^3/uL (0.2- 0.9) 12/16/23 14:36 Eos # (Auto) 0.1 10^3/uL (0.0- 0.8) 12/16/23 14:36 Baso # (Auto) 0.0 10^3/uL (0.0- 0.1) 12/16/23 14:36 Nucleated RBC % (a uto) 0 % 12/16/23 14:36 Nucleated RBCs # 0.0 /100WBC 12/16/23 14:36 Sodium 140 mmol/L (136-1 45) 12/16/23 14:36 Potassium 4.1 mmol/L (3.5-5 .1) 12/16/23 14:36 Chloride 106 mmol/L (98-10 7) 12/16/23 14:36 Carbon Dioxide 25 mmol/L (22-29) 12/16/23 14:36 Anion Gap 13.1 (5-19) 12/16/23 14:36 BUN 10 mg/dL (8-23) 12/16/23 14:36 Creatinine 1.2 mg/dL (0.7-1. 2) 12/16/23 14:36 GFR Calculation 61.3 mL/min (90-1 30) L 12/16/23 14:36 Glucose 97 mg/dL (65-115) 12/16/23 14:36 Calculated Osmolal ity 289 mOsm/kg (285- 295) 12/16/23 14:36 Calcium 9.3 mg/dL (8.5-10 .5) 12/16/23 14:36 Total Bilirubin 0.7 mg/dL (0.15-1 .2) 12/16/23 14:36 AST 57 U/L (0-40) H 12/16/23 14:36 ALT 56 U/L (0-41) H 12/16/23 14:36 Alkaline Phosphata se 130 U/L (40-130) 12/16/23 14:36 Total Protein 6.8 g/dL (6.6-8.7 ) 12/16/23 14:36 Albumin 3.2 g/dL (3.5-5.2 ) L 12/16/23 14:36 Globulin 3.6 g/dL (1.3-4.6 ) 12/16/23 14:36 TSH 1.94 uIU/mL (0.27 -4.20) 12/17/23 14:36 Urine Color Yellow (Yellow) 12/16/23 17:37 Urine Appearance Clear (CLEAR) 12/16/23 17:37 Urine pH 7 (5-7) 12/16/23 17:37 Ur Specific Gravit y 1.005 (1.005-1.0 30) 12/16/23 17:37 Urine Protein Neg (Negative) 12/16/23 17:37 Urine Glucose (UA) Norm (Normal) 12/16/23 17:37 Urine Ketones Negative (Negati ve) 12/16/23 17:37 Urine Blood 3+ (Negative) H 12/16/23 17:37 Urine Nitrate Negative (Negati ve) 12/16/23 17:37 Urine Bilirubin Neg (Negative) 12/16/23 17:37 Urine Urobilinogen 1 mg/dL (Negative ) H 12/16/23 17:37 Ur Leukocyte Keturah ase Trace (Negative) H 12/16/23 17:37 Urine RBC 15-25 /hpf (0-2) H 12/16/23 17:37 Urine WBC 0-4 /hpf (0-5) H 12/16/23 17:37 Ur Squamous Epith Cells 0-4 /hpf (0-5) H 12/16/23 17:37 Amorphous Sediment Not Reportable 12/16/23 17:37 Urine Bacteria Trace /hpf (NONE) 12/16/23 17:37 Salicylates < 0.3 mg/dL (3-10 ) L 12/16/23 14:36 Urine Opiates Scre en Negative ng/mL (N egative) 12/16/23 17:37 Acetaminophen < 5.0 ug/mL (10-3 0) L 12/16/23 14:36 Ur Barbiturates Sc reen Negative ng/mL (N egative) 12/16/23 17:37 Ur Phencyclidine S crn Negative ng/mL (N egative) 12/16/23 17:37 Ur Amphetamines Sc reen Negative ng/mL (N egative) 12/16/23 17:37 U Benzodiazepines Scrn Negative ng/mL (N egative) 12/16/23 17:37 Urine Cocaine Scre en Negative ng/mL (N egative) 12/16/23 17:37 U Marijuana (THC) Screen Negative ng/mL (N egative) 12/16/23 17:37 Ethyl Alcohol < 10 mg/dL (0-10) 12/17/23 14:36 Coronavirus 229E ( PCR) Not detected (NO T DETECT) 12/17/23 15:03 SARS-CoV-2 (PCR) Not detected (NO T DETECT) 12/17/23 15:03 Vitals: Last Vital Signs Temp 97.7 F 01/25/24 06:00 Pulse 73 01/25/24 06:00 Resp 16 01/25/24 06:25 BP 118/64 01/25/24 06:00 Pulse Ox 96 01/25/24 06:25 O2 Del Method Room Air 01/25/24 06:00 Discharge Plan Discharge Patient Disposition: Home Condition: Stable Prescriptions: New Invega Sustenna 156 mg/mL syringe 156 mg IM Q30D 30 Days Qty: 1 1RF Rx Instructions: Next injection 01/31/2024 and then as directed Continued oxycodone 10 mg tablet 10 mg PO Q4H PRN (Reason: Pain) acetaminophen 325 mg Tablet 650 mg PO Q4H PRN (Reason: PAIN OR ELEVATED TEMP) magnesium hydroxide [Milk of Magnesia] 400 mg/5 mL Suspension See Rx Instructions .ROUTE .COMPLEX PRN (Reason: Constipation) Rx Instructions: TAKE 30 ML BY MOUTH EVERY 3RD DAY IF NO BM, FOR CONSTIPATION. bisacodyl 10 mg Suppository See Rx Instructions .ROUTE .COMPLEX PRN (Reason: Constipation) Rx Instructions: INSERT 1 SUPPOSITORY RECTALLY AFTER MILK OF MAGNESIA IF NO BM, NEEDED. ONLY IF TABLETS ARE REFUSED. bisacodyl [Dulcolax (bisacodyl)] 5 mg Tablet,Delayed Release (Dr/Ec) See Rx Instructions .ROUTE .COMPLEX PRN (Reason: Constipation) Rx Instructions: Take 20 mg orally as needed after milk of magnesia if no bm for constipation. alum-mag hydroxide-simeth [Mylanta] 200-200-20 mg/5 mL Suspension 5 ml PO Q2H PRN (Reason: Indigestion) Miralax 17 gram/dose Powder 17 g PO DAILY PRN (Reason: Constipation) Rx Instructions: MIX IN WATER OR JUICE bupropion HCl 300 mg tablet extended release 24 hr 300 mg PO DAILY trazodone 50 mg tablet 50 mg PO BEDTIME PRN (Reason: Insomnia) Discontinued haloperidol lactate 5 mg/mL solution 2 mg IM ONCE risperidone 0.5 mg tablet 0.5 mg PO BEDTIME Discharge Orders: Discharge Order (Routine); Ordered 01/25/24 Ordered By: Delano Carrillo Referrals: Darin Franklin DO [Primary Care Provider] - Discharge Diet: Regular Discharge Activity: Resume usual activity Patient Instructions: Opioid Safety Discharge Attestations NPU Time Spent in Discharge Care*: less than 30 min Specific Discharge Activities: Specific discharge activities: educating patient, discussing with block and case maker/social workers/dc planners, documenting/other paperwork and evaluating patient/reviewing data Coding Level of Care Code Acute Code for Chg Fwd Diagnoses Major depressive disorder without psychotic features F32.9 Suicidal ideation R45.851 TBI (traumatic brain injury) S06.9XAA Impulse control disorder, unspecified F63.9
[2024-01-25 11:52] VITALS: BP 118/64; PULSE 73; RESP 16; TEMP 36.5; O2SAT 96
--- NOTE | 2024-01-25 12:25 | DCPLANNER ---
IMM was printed and explained to pt and placed in discharge packet and placed in file.
[2024-01-25] MEDS: acetaminophen 325 mg Tablet 650 MG PO (14:49)
== END 2024-01-25 16:10 | disposition skilled nursing facility (03) | DRG 886 ==
LOC: ER 12-19 15:18 → NP 12-19 15:41
PROVIDERS: Admitting Provider Psychiatry & Neurology Psychiatry; Emergency Provider Emergency Medicine; PCP General Practice; Visit Provider Psychiatry & Neurology Psychiatry
DX: F63.9 Impulse disorder, unspecified (principal); R45.851 Suicidal ideations; R45.4 Irritability and anger; R45.850 Homicidal ideations; Z87.820 Personal history of traumatic brain injury; Z91.51 Personal history of suicidal behavior; F32.9 Major depressive disorder, single episode, unspecified; Z72.0 Tobacco use
CPT/HCPCS: 36415; 71045; 80053; 80306; 80307; 81001; 84443; 85025; 87086; 87635; 93005; 96372; 97150; 97165; 99285